=== PATIENT | female | born 1940 | race Caucasian/White ===

== ENCOUNTER 2016-11-18 13:40 | Outpatient (CLI) | payer MEDICARE, MEDICAID | END 2016-11-18 13:41 | disposition home or self-care (01) | DX: E78.4 Other hyperlipidemia (principal); Z79.899 Other long term (current) drug therapy; M12.89 Other specific arthropathies, not elsewhere classified, multiple sites; E03.9 Hypothyroidism, unspecified ==

== ENCOUNTER 2016-12-18 13:03 | Outpatient (CLI) | payer MEDICARE, MEDICAID | END 2016-12-18 13:04 | disposition EMS.NT | DX: Z03.89 Encounter for observation for other suspected diseases and conditions ruled out (principal); W06.XXXA Fall from bed, initial encounter; Y92.003 Bedroom of unspecified non-institutional (private) residence as the place of occurrence of the external cause ==

== ENCOUNTER 2017-02-08 13:31 | Outpatient (CLI) | payer MEDICARE, MEDICAID | END 2017-02-08 13:32 | disposition critical access hospital (66) | DX: S90.822A Blister (nonthermal), left foot, initial encounter (principal) | CPT/HCPCS: A0425; A0429 ==

== ENCOUNTER 2017-02-08 13:34 | Emergency (ER) | payer MEDICARE, MEDICAID ==
[2017-02-08 13:44] VITALS: BP 168/83
--- NOTE | 2017-02-08 14:38 | ED Physician Documentation ---
PD HPI SKIN - Stated complaint Stated Complaint: RASH - Chief complaint Chief Complaint: Wound - History obtained from History obtained from: Patient - History of Present Illness Timing - onset: How many weeks ago (2) Timing - duration: Weeks (2 weeks of some itching and discomfort on backs of thighs. Has appt with PMD tomorrow. Had been seen last week without apparent Dx. Patient says rash is worse since then.) Timing - details: Gradual onset Location: RLE (back of thighs and inside lower legs.), LLE Quality / character: Itchy, Burning, Discolored (red patchyes), Vesicular Associated symptoms: Myalgias. No: Fever, Joint pain Similar symptoms before: Has not had sx before Review of Systems Constitutional: reports: Myalgias. denies: Fever, Chills Nose: denies: Rhinorrhea / runny nose, Congestion Throat: denies: Sore throat Respiratory: denies: Cough GI: denies: Abdominal Pain, Nausea, Vomiting, Diarrhea Skin: reports: Rash Neurologic: denies: Focal weakness, Numbness, Near syncope, Headache PD PAST MEDICAL HISTORY - Past Medical History Past Medical History: Yes Cardiovascular: None, Murmur Respiratory: None Neuro: None HEENT: None Musculoskeletal: Osteoarthritis, Fibromyalgia - Past Surgical History Past Surgical History: Yes Ortho: 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 surgery /[employer]: 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 - Present Medications Home Medications: Ambulatory Orders Medication Instructions Recorded Confirmed Cranberry Fruit Concentrate 450 mg PO DAILY 04/23/13 02/08/17 [Cranberry] FLUoxetine [PROzac] 40 mg PO BID 04/23/13 02/08/17 HYDROcodone/ACET 7.5/325 [Lortab] 1 each PO Q4-6H PRN 04/23/13 02/08/17 Levothyroxine [Synthroid] 100 mcg PO QDAC 04/23/13 02/08/17 Loperamide [Imodium] 2 mg PO QID PRN 04/23/13 02/08/17 Memantine HCl [Namenda] 10 mg PO BID 04/23/13 02/08/17 Omeprazole [PriLOSEC] 20 mg PO DAILY 04/23/13 02/08/17 Simvastatin 20 mg PO HS 04/23/13 02/08/17 traZODone [Desyrel] 100 mg PO HS PRN 04/23/13 02/08/17 Albuterol Sulfate [Proair Hfa] 2 puffs IH TID PRN 02/10/14 02/08/17 Montelukast [Singulair] 10 mg PO DAILY 02/10/14 02/08/17 Aspirin [Aspirin EC] 81 mg PO DAILY 02/11/14 02/08/17 Acyclovir 800 mg PO QID #28 tablet 02/08/17 Dexamethasone [Decadron] 4 mg PO DAILY #5 tablet 02/08/17 Donepezil [Aricept] 5 mg PO DAILY 02/08/17 02/08/17 Gabapentin 300 mg PO BID 02/08/17 02/08/17 Hydrocodone/Acetaminophen [[place] 1 each PO Q6H PRN #20 tablet 02/08/17 5-325 Tablet] Hydroxyzine HCl 25 mg PO TID PRN 02/08/17 02/08/17 - Allergies Allergies/Adverse Reactions: Allergies Allergy/AdvReac Type Severity Reaction Status Date / Time rivastigmine [From Exelon] Allergy Rash Verified 02/08/17 14:08 rivastigmine tartrate * Allergy Rash Verified 02/08/17 14:08 [From Exelon] - Social History Does the pt smoke?: No Smoking Status: Former smoker Does the pt drink ETOH?: No Does the pt have substance abuse?: No - Immunizations Immunizations are current?: Yes - POLST Patient has POLST: No PD ED PE NORMAL - Vitals Vital signs reviewed: Yes - General General: Alert and oriented X 3, No acute distress, Well developed/nourished - HEENT HEENT: Pharynx benign - Neck Neck: Supple, no meningeal sign, No adenopathy - Cardiac Cardiac: RRR, No murmur - Respiratory Respiratory: Clear bilaterally - Abdomen Abdomen: Soft, Non tender - Back Back: No CVA TTP, No spinal TTP, Other (back has some clustered blistering red rash spots upper lumbar and radiating down to both posterior thighs then to medial lower legs. No purulence. ) - Derm Derm: Normal color, Warm and dry, Other (rash as above) - Extremities Extremities: No edema, No calf tenderness / cord - Neuro Neuro: No motor deficit, No sensory deficit - Psych Psych: Normal mood, Normal affect Results - Vitals Vitals: Vital Signs - 24 hr 02/08/17 13:38 Temperature 36.3 C L Heart Rate 71 Respiratory 18 Rate Blood Pressure 168/83 H O2 Saturation 97 Oxygen O2 Source [Without Activity] Room air O2 Source Room air PD MEDICAL DECISION MAKING - ED course Complexity details: considered differential (patchy blisters rash symmetrically on both posterior thighs down to medial lower legs and in upper lumbar back c/w dermatomal pattern. ), d/w patient Departure - Departure Disposition: 01 Home, Self Care Clinical Impression: Shingles outbreak Qualifiers: Herpes zoster complications: without complications Qualified Code(s): B02.9 - Zoster without complications Condition: Stable Record reviewed to determine appropriate education?: Yes Instructions: ED Shingles Follow-Up: Sabiha Allen MD [Primary Care Provider] - Prescriptions: Acyclovir 800 mg PO QID #28 tablet Dexamethasone [Decadron] 4 mg PO DAILY #5 tablet Hydrocodone/Acetaminophen [[place] 5-325 Tablet] 1 each PO Q6H PRN #20 tablet PRN Reason: Pain Comments: Continue usual medications. The rash looks like shingles, so will treat with an antiviral medication (Acyclovir), steroid (Decadron) for nerve inflammation to reduce pain, and then add Tylenol or [place] as needed for pains. Recheck with PMD in about 4-5 days. Discharge Date/Time: 02/08/17 15:39
[2017-02-08] MEDS ORDERED: DEXAMETHASONE 10 MG/ML VIAL PO STA (14:59)
[2017-02-08] MEDS ORDERED: ACYCLOVIR 200 MG CAPSULE PO STA (14:59)
[2017-02-08] MEDS ORDERED: HYDROcod/ACETAM 5/325 MG TABLET PO STA (14:59)
[2017-02-08] MEDS ORDERED: ACYCLOVIR 200 MG CAPSULE PO ONE (15:12)
[2017-02-08] MEDS ORDERED: HYDROcod/ACETAM 5/325 MG TABLET ONE (15:12)
[2017-02-08] MEDS ORDERED: DEXAMETHASONE 10 MG/ML VIAL ONE (15:12)
[2017-02-08] MEDS ORDERED: CHERRY SYRUP 10 ML UDC PO ONE (15:12)
== END 2017-02-08 15:39 | disposition home or self-care (01) ==
LOC: EDUNIT# → ED 13:34
DX: B02.9 Zoster without complications (principal); Z79.51 Long term (current) use of inhaled steroids; Z87.891 Personal history of nicotine dependence
CPT/HCPCS: 99283; A9270

== ENCOUNTER 2017-03-13 22:43 | Outpatient (CLI) | payer MEDICARE, MEDICAID | END 2017-03-13 23:59 | disposition EMS.NT | LOC: EMS 22:43 | PROVIDERS: ATTEND Surgery | DX: Z03.89 Encounter for observation for other suspected diseases and conditions ruled out (principal); W18.39XA Other fall on same level, initial encounter; Y93.G1 Activity, food preparation and clean up; Y92.030 Kitchen in apartment as the place of occurrence of the external cause ==

== ENCOUNTER 2017-03-30 14:25 | Outpatient (CLI) | payer MEDICARE, MEDICAID ==
--- NOTE | 2017-04-01 08:13 | Mammography Report ---
DIGITAL BILATERAL SCREENING MAMMOGRAM: 03/30/2017 CLINICAL HISTORY: This is a 77-year-old female in for routine screening mammogram. Patient has a family history of breast cancer. Patient's sister had breast cancer in her 40s. Patient has had no breast surgical history. Patient has relatively large breasts, so multiple craniocaudad views and oblique lateral views had to be obtained in order to adequately visualize each breast. TECHNIQUE: Routine CC and MLO projections were obtained of the breasts. FINDINGS: Breast parenchyma consists of scattered fibroglandular densities. The right breast shows once again two clusters of calcification in the upper outer quadrant of the anterior aspect of the right breast. These clusters of calcification have been present on multiple old exams without significant change. No significant masses are noted in the right breast. The left breast demonstrates two small clusters of calcification. One of these clusters of calcification is located in the anterior aspect of the breast within the midline 6 cm posterior to the nipple. The other calcification resides in the inner inferior quadrant of the left breast at the 4-5 o'clock position 19 cm posteromedial to the nipple. Each of these calcifications have shown a gradual increased number of calcifications within them over the course of patient's mammograms. Recommend patient return for magnification craniocaudad and lateral medial views of each of these clusters of calcification. There are a few small masses noted in the left breast. These measure 5 mm or less and most likely are of benign etiology. There are some calcifications developing in the upper outer quadrant of the right breast that were not noted on preceding exam. These reside in the 10 o' clock position 14 cm from the nipple. Recommend patient return for magnification craniocaudad and mediolateral views for further evaluation. These calcifications are approximately 11 cm from the nipple. IMPRESSION: A CLUSTER OF CALCIFICATION IS NOTED IN THE 10 O'CLOCK POSITION OF THE RIGHT BREAST AND TWO CLUSTERS OF CALCIFICATION ARE NOTED IN THE LEFT BREAST. THE CLUSTERS OF CALCIFICATIONS IN THE LEFT BREAST RESIDE IN THE MIDLINE OF THE ANTERIOR HALF OF THE LEFT BREAST AND IN THE 4 O'CLOCK POSITION OF THE POSTERIOR HALF OF THE LEFT BREAST. THESE CLUSTERS OF CALCIFICATIONS SHOW PROGRESSION OVER THE COURSE OF PATIENT'S MAMMOGRAMS. RECOMMEND PATIENT RETURN FOR MAGNIFICATION VIEWS OF EACH BREAST FOR FURTHER EVALUATION. BIRADS CATEGORY 0 - INCOMPLETE. NEEDS ADDITIONAL IMAGING EVALUATION. BILATERAL MAGNIFICATION VIEWS. STANDARD QUALIFYING STATEMENTS 1. This examination was reviewed with the aid of Computer-Aided Detection (CAD). 2. A negative or benign imaging report should not delay biopsy if clinically suspicious findings are present. Consider surgical consultation if warranted. More than 5% of cancers are not identified by imaging. 3. Dense breasts may obscure an underlying neoplasm. JOB #: [id number] EXT JOB #: [id number] [facility]
== END 2017-03-30 14:26 | disposition home or self-care (01) ==
LOC: DI 14:25
PROVIDERS: ATTEND Internal Medicine
DX: Z12.31 Encounter for screening mammogram for malignant neoplasm of breast (principal); R92.1 Mammographic calcification found on diagnostic imaging of breast; Z80.3 Family history of malignant neoplasm of breast
CPT/HCPCS: 77067

== ENCOUNTER 2017-03-30 14:41 | Outpatient (CLI) | payer MEDICARE, MEDICAID ==
--- NOTE | 2017-03-31 18:45 | XRAY Report ---
TWO VIEWS OF THE LUMBAR SPINE: 03/30/2017 CLINICAL HISTORY: Patient has back pain for years. COMPARISON: 05/06/2016 FINDINGS: Prominent vascular calcification is noted in the abdominal aorta and its iliac branches. Five nonrib-bearing lumbar-type vertebrae are noted. Mild anterior spurring is noted in the lumbar s pine and lower T-spine. Minimal disk space narrowing is noted at L2-3 and L4-5. Mild narrowing of the SI joints is seen related to mild osteoarthritis. Mild spurring is noted along the lateral aspect of each acetabulum. No significant change is detected in the lumbar spine as com pared to 05/06/2016. IMPRESSION: MILD OSTEOARTHRITIS OF THE LUMBAR SPINE WITHOUT CHANGE NOTED COMPARED TO 05/06/2016. JOB #: [id number] EXT JOB #:[id number]
== END 2017-03-30 14:42 | disposition home or self-care (01) ==
LOC: DI 14:41
PROVIDERS: ATTEND Internal Medicine
DX: M47.896 Other spondylosis, lumbar region (principal); E78.4 Other hyperlipidemia; M12.89 Other specific arthropathies, not elsewhere classified, multiple sites; Z79.899 Other long term (current) drug therapy
CPT/HCPCS: 36415; 72100; 80053; 80061; 84550; 85651

== ENCOUNTER 2017-03-30 15:06 | Outpatient (CLI) | payer MEDICARE, MEDICAID ==
[2017-03-30 15:27] LABS: HCT - HEMATOCRIT 37.9 % (37.0-47.0); HGB - HEMOGLOBIN 12.8 g/dL (12.0-16.0); MEAN CORPUSCULAR HEMOGLOBIN 30.5 pg (27.0-31.0); MEAN CORPUSCULAR HGB CONC 33.8 g/dL (32.0-36.0); MEAN CORPUSCULAR VOLUME 90.2 fL (81.0-99.0); MEAN PLATELET VOLUME 6.7 fL (7.9-10.8); RED BLOOD COUNT 4.2 10^6/uL (4.20-5.40); RED CELL DISTRIBUTION WIDTH 13.3 % (12.0-15.0); WHITE BLOOD COUNT 7.7 x10^3/uL (4.8-10.8)
[2017-03-30 15:45] LABS: ALBUMIN/GLOBULIN RATIO 1.1 (1.0-2.2); BILIRUBIN,TOTAL 0.5 mg/dL (0.2-1.0); BUN - BLOOD UREA NITROGEN 16 mg/dL (6-20); CALCIUM 9.5 mg/dL (8.5-10.3); CARBON DIOXIDE - CO2 30 mmol/L (21-32); CHLORIDE 95 mmol/L (101-111); CHOL/HDL RATIO 2.6 (<4.4); CHOLESTEROL 174 mg/dL; GFR - MDRD 54 (>89); GLUCOSE 117 mg/dL (70-100); HDL CHOLESTEROL 68 mg/dL; LDL/HDL RATIO 1.2 (<4.4); POTASSIUM 4.3 mmol/L (3.5-5.0); SODIUM 135 mmol/L (135-145); TRIGLYCERIDES 109 mg/dL; URIC ACID 5.2 mg/dL (2.6-7.2); VLDL CHOLESTEROL 22 mg/dL
== END 2017-03-30 15:07 | disposition home or self-care (01) ==
LOC: LAB 15:06
PROVIDERS: ATTEND Internal Medicine
DX: E78.4 Other hyperlipidemia (principal); M54.5 Low back pain; M12.89 Other specific arthropathies, not elsewhere classified, multiple sites; Z79.899 Other long term (current) drug therapy
CPT/HCPCS: 36415; 80053; 80061; 84550; 85651

== ENCOUNTER 2017-04-27 13:21 | Outpatient (CLI) | payer MEDICARE, MEDICAID ==
--- NOTE | 2017-04-27 16:19 | Mammography Report ---
DIGITAL BILATERAL DIAGNOSTIC MAMMOGRAM: 04/27/2017 CLINICAL HISTORY: Asymptomatic patient recalled from a screening mammogram 03/30. Sister with history of breast cancer. TECHNIQUE: Bilateral magnification CC/true lateral and open true lateral views obtained. NOTE: Positioning is limited by patient tolerance. FINDINGS: RIGHT BREAST: There are loosely-grouped and scattered calcifications in the upper outer quadrant. These are predominantly punctate and uniform. There is no definite pleomorphism. There is no associated mass or distortion. LEFT BREAST: There is a group of tightly clustered coarse calcifications in the central position. Additional punctate and scattered calcifications are noted diffusely. There is no definite pleomorphism. There is no associated mass or distortion. Recommend followup magnification views to confirm stability in six months. IMPRESSION: PROBABLY BENIGN EXAMINATION (BIRADS CATEGORY 3-PROBABLY BENIGN FINDINGS). RECOMMENDATION: FOLLOWUP BILATERAL MAGNIFICATION VIEWS IN SIX MONTHS. NOTE: Positioning limitations described above. STANDARD QUALIFYING STATEMENTS 1. This examination was reviewed with the aid of Computer-Aided Detection (CAD). 2. A negative or benign imaging report should not delay biopsy if clinically suspicious findings are present. Consider surgical consultation if warranted. More than 5% of cancers are not identified by imaging. 3. Dense breasts may obscure an underlying neoplasm. JOB #: [id number] EXT JOB #: [id number] GIA
== END 2017-04-27 13:22 | disposition home or self-care (01) ==
LOC: DI 13:21
PROVIDERS: ATTEND Internal Medicine
DX: R92.1 Mammographic calcification found on diagnostic imaging of breast (principal); Z80.3 Family history of malignant neoplasm of breast
CPT/HCPCS: 77066

== ENCOUNTER 2017-04-27 13:21 | Outpatient (CLI) | payer MEDICARE, MEDICAID ==
--- NOTE | 2017-04-27 16:31 | XRAY Report ---
FOUR VIEW LEFT WRIST: 04/27/2017 CLINICAL HISTORY: Wrist pain. No known trauma. FINDINGS: There is patchy bony demineralization. Radiocarpal and intercarpal degenerative changes ex ist. Ligamentous calcifications are noted at the triangular fibrocartilage and about the proximal 1st metacarpal. There is no acute fracture or focus of destruction. There is no subluxation. IMPRESSION: DEMINERALIZATION AND DEGENERATIVE CHANGES. DYSTROPHIC SOFT TISSUE CALCIFICATIONS. NO ACU TE PROCESS. JOB #: [id number] EXT JOB #:[id number]
== END 2017-04-27 23:59 | disposition home or self-care (01) ==
LOC: DI 13:21
PROVIDERS: ATTEND Internal Medicine
DX: M25.50 Pain in unspecified joint (principal)

== ENCOUNTER 2017-04-30 13:00 | Outpatient (CLI) | payer MEDICARE, MEDICAID | END 2017-04-30 13:01 | disposition EMS.NT | LOC: EMS 13:00 | PROVIDERS: ATTEND Surgery | DX: Z03.89 Encounter for observation for other suspected diseases and conditions ruled out (principal); W06.XXXA Fall from bed, initial encounter; Y92.003 Bedroom of unspecified non-institutional (private) residence as the place of occurrence of the external cause ==

== ENCOUNTER 2017-06-03 14:42 | Outpatient (CLI) | payer MEDICARE, MEDICAID | END 2017-06-03 14:43 | disposition critical access hospital (66) | LOC: EMS 14:42 | PROVIDERS: ATTEND Surgery | DX: M25.551 Pain in right hip (principal); M79.604 Pain in right leg; M25.511 Pain in right shoulder; W18.11XA Fall from or off toilet without subsequent striking against object, initial encounter; Y92.031 Bathroom in apartment as the place of occurrence of the external cause | CPT/HCPCS: A0425; A0429 ==

== ENCOUNTER 2017-06-03 15:03 | Emergency (ER) | payer MEDICARE, MEDICAID ==
[~2017-06-03 15:03] MED LIST: TETANUS/DIPHTHERIA/PERTUSSIS 0.5 ML SYRINGE IM ONE
[2017-06-03] MEDS ORDERED: TETANUS/DIPHTHERIA/PERTUSSIS 0.5 ML SYRINGE IM ONE (15:07)
--- NOTE | 2017-06-03 15:56 | XRAY Preliminary Report ---
Exam: XR Hand 3 View RT IMPRESSION: 1. No acute bony abnormalities. 2. 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 [facility] SITE ID: [id number]
--- NOTE | 2017-06-03 15:57 | XRAY Preliminary Report ---
Exam: XR Humerus RT IMPRESSION: No acute bony abnormality. [facility] SITE ID: [id number]
--- NOTE | 2017-06-03 15:57 | XRAY Report ---
EXAM: RIGHT HAND RADIOGRAPHY EXAM DATE: 06/03/2017 03:38 PM. CLINICAL HISTORY: Fall. Hand injury. COMPARISON: None. TECHNIQUE: 3 views. FINDINGS: Bones: No acute traumatic or destructive bone abnormalities. No erosions or periostitis. Joints: Mild degenerative spurring of the IP joints. Alignment and joint spaces maintained. Soft Tissues: Widespread periarticular calcifications, especially the MCP joints. IMPRESSION: 1. No acute bony abnormalities. 2. 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 [facility] Referring Provider Line: [phone] SITE ID: [id number]
--- NOTE | 2017-06-03 15:59 | XRAY Report ---
EXAM: RIGHT HUMERUS RADIOGRAPHY EXAM DATE: 06/03/2017 03:38 PM. CLINICAL HISTORY: Fall. Pain. COMPARISON: None. TECHNIQUE: 2 views. FINDINGS: Bones: Normal. No fractures or bone lesions. Joints: Normal. No effusions or subluxations in the visualized shoulder or elbow joints. Soft Tissues: Multiple soft tissue calcifications adjacent to the acromioclavicular joint and glenohu meral joint. IMPRESSION: No acute bony abnormality. [facility] Referring Provider Line: [phone] SITE ID: [id number]
--- NOTE | 2017-06-03 16:00 | CT Preliminary Report ---
Exam: CT Head W/O IMPRESSION: Chronic findings. No acute disease. [facility] SITE ID: [id number]
--- NOTE | 2017-06-03 16:03 | CT Report ---
EXAM: CT HEAD EXAM DATE: 06/03/2017 03:37 PM. CLINICAL HISTORY: Fall HI lethargic. COMPARISON: 04/23/2015. TECHNIQUE: Multiaxial CT images were obtained from the foramen magnum to the vertex. IV contrast: Non e. Reformats: Coronal. In accordance with CT protocol optimization, one or more of the following dose reduction techniques w ere utilized for this exam: automated exposure control, adjustment of mA and/or KV based on patient s ize, or use of iterative reconstructive technique. FINDINGS: Parenchyma: No intraparenchymal hemorrhage. No evidence of mass, midline shift, or CT findings of acu te infarction. Small lacunar infarctions. Carrion-white differentiation is distinct. Extraaxial Spaces: Normal for age. No subdural or epidural collections. Ventricles: The ventricles and cortical sulci are enlarged, consistent with age-related tissue loss. Sinuses: Imaged paranasal sinuses, orbits, and mastoids show no significant abnormality. Bones: Unremarkable. Other: Diffuse chronic microangiopathic white matter changes. Calcifications of intracranial carotid and vertebral arteries. IMPRESSION: Chronic findings. No acute disease. [facility] Referring Provider Line: [phone] SITE ID: [id number]
--- NOTE | 2017-06-03 16:08 | CT Preliminary Report ---
Exam: CT Cervical Spine W/O IMPRESSION: Degenerative changes most marked at C5-C6 and C6-C7. No acute disease. [facility] SITE ID: [id number]
--- NOTE | 2017-06-03 16:10 | CT Report ---
EXAM: CT CERVICAL SPINE WITHOUT CONTRAST DATE: 06/03/2017 03:45 PM HISTORY: Fall neck pain. COMPARISONS: 01/17/2015. TECHNIQUE: Thin-section axial images were acquired of the cervical spine without contrast. Post-proce ssing: Coronal and sagittal reformats. Other: None. In accordance with CT protocol optimization, one or more of the following dose reduction techniques w ere utilized for this exam: automated exposure control, adjustment of mA and/or KV based on patient s ize, or use of iterative reconstructive technique. FINDINGS: Alignment: Normal. No scoliosis or spondylolisthesis. Bones: No fracture or bone lesion. Bone island in C5 vertebral body. Interspace Levels/Facets: Disk space narrowing at C5-C6 and C6-C7 with anterior osteophyte formation. Mild generalized uterine changes in the mid and lower cervical levels. Musculature: Grossly unremarkable. Other: The paravertebral and prevertebral soft tissues are normal. The lung apices are clear. IMPRESSION: Degenerative changes most marked at C5-C6 and C6-C7. No acute disease. [facility] Referring Provider Line: [phone] SITE ID: [id number]
--- NOTE | 2017-06-03 17:04 | ED Physician Documentation ---
History of Present Illness - Stated complaint Stated Complaint: FELL - Chief complaint Chief Complaint: Ext Problem - Additonal information Additional information: hx from pt takes pain meds just got a new rx from store took two was sitting on her toilet and fell aspeep and toppled into the shower with her toilet bars hit head, neck pain, right upper arm pain, right hand pain and abrasions, very sleepy, no hip or lower ext paimn no reported fever cough NVD Review of Systems Respiratory: denies: Cough GI: denies: Vomiting Skin: reports: Abrasion (s) Musculoskeletal: reports: Neck pain, Extremity pain Neurologic: reports: Head injury Endocrine: denies: Easy bruising / bleeding (pt reported being on a blood thinner but does not know what it is, not on med list) Immunocompromised: denies: Immunocompromised PD PAST MEDICAL HISTORY - Past Medical History Past Medical History: Yes Cardiovascular: None, Murmur Respiratory: None Neuro: None HEENT: None Musculoskeletal: Osteoarthritis, Fibromyalgia - Past Surgical History Past Surgical History: Yes Ortho: 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 surgery /[employer] POOL: 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 - Present Medications Home Medications: Ambulatory Orders Medication Instructions Recorded Confirmed Ascorbic Acid [Vitamin C] 1 tab PO BID 06/03/17 06/03/17 Cetirizine HCl/Pseudoephedrine 1 tab PO BID 06/03/17 06/03/17 [Zyrtec-D Tablet] Flaxseed Oil 1 tab PO TID 06/03/17 06/03/17 Fluoxetine HCl 1 tab PO TID 06/03/17 06/03/17 Gabapentin [Gabapentin] 1 tab PO BID 06/03/17 06/03/17 Hydrocodone/Acetaminophen 1 tab PO PRN PRN 06/03/17 06/03/17 [Hydrocodon-Acetaminoph 7.5-325] Levothyroxine [Synthroid] 1 tab PO QDAC 06/03/17 06/03/17 Loperamide HCl [Loperamide] 1 tab PO DAILY 06/03/17 06/03/17 Memantine HCl [Namenda Xr] 1 tab PO BID 06/03/17 06/03/17 Montelukast [Singulair] 1 tab PO DAILY 06/03/17 06/03/17 Montelukast [Singulair] 1 tab PO DAILY 06/03/17 06/03/17 Blomkest-3/Dha/Epa/Fish Oil [Fish Oil 1 tab PO TID 06/03/17 06/03/17 1,000 mg Softgel] Omeprazole [Omeprazole] 1 tab PO DAILY 06/03/17 06/03/17 Pregabalin [Lyrica] 1 tab PO TID 06/03/17 06/03/17 Simvastatin [Zocor] 1 tab PO DAILY 06/03/17 06/03/17 Trazodone HCl 1 tab PO DAILY 06/03/17 06/03/17 raNITIdine [Zantac] 1 tab PO DAILY 06/03/17 06/03/17 - Allergies Allergies/Adverse Reactions: Allergies Allergy/AdvReac Type Severity Reaction Status Date / Time lisinopril Allergy Anaphylaxis Verified 06/03/17 15:34 rivastigmine [From Exelon] Allergy Rash Verified 06/03/17 15:34 rivastigmine tartrate * Allergy Rash Verified 06/03/17 15:34 [From Exelon] - Social History Does the pt smoke?: No Smoking Status: Former smoker Does the pt drink ETOH?: No Does the pt have substance abuse?: No - Immunizations Immunizations are current?: Yes - POLST Patient has POLST: No PD ED PE NORMAL - Vitals Vital signs reviewed: Yes - General General: No: Alert and oriented X 3 (very sleepy) - HEENT HEENT: PERRL (small pupils) - Neck Neck: No: No bony TTP (+ diffuse TTP) - Cardiac Cardiac: RRR - Respiratory Respiratory: No respiratory distress, Clear bilaterally - Abdomen Abdomen: Soft, Non tender - Derm Derm: Other (fragile skin, sup skin tears, to dorsum L hand) - Extremities Extremities: Other (TTP upper humerus and dorsum of hand, no deformity, MSV intact, no hip or lower extremity pain) - Neuro Neuro: No motor deficit, No sensory deficit Results - Vitals Vitals: Vital Signs - 24 hr 06/03/17 14:52 Temperature 36.5 C Heart Rate 102 H Respiratory 18 Rate Blood Pressure 132/73 H O2 Saturation 94 Oxygen O2 Source [] Room air O2 Source Room air - Rads (name of study) CTH Radiology: See rad report (no acute) CT CS Radiology: See rad report (no acut) hand Radiology: See rad report (no acute) humerus Radiology: See rad report (no acute) Departure - Departure Disposition: 01 Home, Self Care Clinical Impression: Fall Qualifiers: Encounter type: initial encounter Qualified Code(s): W19.XXXA - Unspecified fall, initial encounter Head injury Qualifiers: Encounter type: initial encounter Qualified Code(s): S09.90XA - Unspecified injury of head, initial encounter Neck sprain Qualifiers: Encounter type: initial encounter Qualified Code(s): S13.9XXA - Sprain of joints and ligaments of unspecified parts of neck, initial encounter Arm contusion Qualifiers: Encounter type: initial encounter Laterality: right Qualified Code(s): S40.021A - Contusion of right upper arm, initial encounter Contusion of head Qualifiers: Encounter type: initial encounter Contusion of head detail: unspecified part of head Qualified Code(s): S00.93XA - Contusion of unspecified part of head, initial encounter Condition: Good Instructions: ED Head Injury Closed, ED Head Injury Closed Sleep Mon, ED Sprain Strain Neck, ED Contusion Upper Ext Follow-Up: Sabiha Allen MD [Provider Admit Priv/Credential] - Comments: I do not think you should be taking two pain pills at a time - you are way too sleepy after taking those medications - especially if you live alone Please stay with a responsible adult tonight who can assist you until you recover from the medication you took earlier today
[2017-06-03 18:20] VITALS: BP 143/73
== END 2017-06-03 18:19 | disposition home or self-care (01) ==
LOC: EDBD → ED 15:03
DX: S09.90XA Unspecified injury of head, initial encounter (principal); S13.9XXA Sprain of joints and ligaments of unspecified parts of neck, initial encounter; S00.93XA Contusion of unspecified part of head, initial encounter; S40.021A Contusion of right upper arm, initial encounter; W18.12XA Fall from or off toilet with subsequent striking against object, initial encounter; Y93.84 Activity, sleeping; Z23 Encounter for immunization; Z87.891 Personal history of nicotine dependence; Z79.01 Long term (current) use of anticoagulants
CPT/HCPCS: 70450; 72125; 90471; 99283; 99284

== ENCOUNTER 2017-06-22 14:07 | Outpatient (CLI) | payer MEDICARE, MEDICAID ==
[2017-06-22 14:56] LABS: ALBUMIN/GLOBULIN RATIO 1.2 (1.0-2.2); BILIRUBIN,TOTAL 0.5 mg/dL (0.2-1.0); BUN - BLOOD UREA NITROGEN 13 mg/dL (6-20); CALCIUM 9.3 mg/dL (8.5-10.3); CARBON DIOXIDE - CO2 30 mmol/L (21-32); CHLORIDE 99 mmol/L (101-111); CHOL/HDL RATIO 2.5 (<4.4); CHOLESTEROL 166 mg/dL; CREATININE 0.8 mg/dL (0.4-1.0); GFR - MDRD 70 (>89); GLUCOSE 105 mg/dL (70-100); HDL CHOLESTEROL 66 mg/dL; LDL/HDL RATIO 1.2 (<4.4); POTASSIUM 4.9 mmol/L (3.5-5.0); SODIUM 139 mmol/L (135-145); TOTAL PROTEIN 6.9 g/dL (6.7-8.2); TRIGLYCERIDES 98 mg/dL; VLDL CHOLESTEROL 20 mg/dL
[2017-06-22 15:50] LABS: THYROID STIMULATING HORMONE 1.73 uIU/mL (0.34-5.60)
== END 2017-06-22 14:08 | disposition home or self-care (01) ==
LOC: LAB 14:07
PROVIDERS: ATTEND Internal Medicine
DX: E03.9 Hypothyroidism, unspecified (principal); E78.4 Other hyperlipidemia; F33.0 Major depressive disorder, recurrent, mild; Z79.899 Other long term (current) drug therapy
CPT/HCPCS: 36415; 80053; 80061; 84439; 84443

== ENCOUNTER 2017-11-07 14:19 | Outpatient (CLI) | payer MEDICARE, MEDICAID ==
--- NOTE | 2017-11-07 15:43 | Mammography Report ---
DIGITAL DIAGNOSTIC BILATERAL MAMMOGRAM: 11/07/2017 CLINICAL INDICATION: Followup calcifications bilaterally. TECHNIQUE: Bilateral CC, MLO, true lateral, spot magnification views. COMPARISON: 04/27/2017, 03/30/2017, 01/22/2015, 02/07/2013, 09/23/2011, 01/22/2010. FINDINGS: The breasts again demonstrate scattered fibroglandular densities bilaterally. Coarse and punctate, typically benign calcifications are again seen. The calcifications in the left breast continue to coarsen. The calcifications in the right breast remain punctate on spot magnification views. No developing pleomorphism is identified. No associated mass or architectural distortion is seen. IMPRESSION: PROBABLE BENIGN BILATERAL CALCIFICATIONS. RECOMMENDATIONS: DIAGNOSTIC BILATERAL MAMMOGRAM IN 6 MONTHS, TO ASSURE STABILITY. BIRADS CATEGORY 3-PROBABLE BENIGN FINDINGS. STANDARD QUALIFYING STATEMENTS: 1. This examination was reviewed with the aid of Computer-Aided Detection (CAD). 2. A negative or benign imaging report should not delay biopsy if clinically suspicious findings are present. Consider surgical consultation if warranted. More than 5% of cancers are not identified by imaging. 3. Dense breasts may obscure an underlying neoplasm. TD: 11/07/2017 15:42
== END 2017-11-07 14:20 | disposition home or self-care (01) ==
LOC: DI 14:19
PROVIDERS: ATTEND Internal Medicine
DX: R92.1 Mammographic calcification found on diagnostic imaging of breast (principal)
CPT/HCPCS: 77066

== ENCOUNTER 2018-03-01 12:20 | Outpatient (CLI) | payer MEDICARE, MEDICAID | END 2018-03-01 12:21 | disposition home or self-care (01) | LOC: LAB 12:20 | PROVIDERS: ATTEND Internal Medicine | DX: E03.9 Hypothyroidism, unspecified (principal); E78.4 Other hyperlipidemia; N39.41 Urge incontinence | CPT/HCPCS: 84443 ==

== ENCOUNTER 2018-03-13 15:06 | Outpatient (CLI) | payer MEDICARE, MEDICAID ==
--- NOTE | 2018-03-13 15:50 | XRAY Report ---
Procedure Date: 03/13/2018 Accession Number: [id number] / [id number] Procedure: XR - Lumbar Spine 2 View CPT Code: FULL RESULT: EXAM: Lumbar Spine 2 View DATE: 03/13/2018 3:41 PM CLINICAL HISTORY: BACK PX COMPARISON: 03/30/2017 TECHNIQUE: 3 views. FINDINGS: Alignment: Normal. No spondylolisthesis or scoliosis. Bones: Five [id number]-[id number] lumbar vertebral bodies are present. No fractures or bone lesions. Disks: Progression of degenerative disc disease. Facets: Progression of facet arthropathy. Sacroiliac Joints: Mild degenerative changes. Soft Tissues: Normal. The visualized bowel gas pattern is normal. IMPRESSION: Progression of degenerative disc and facet disease. No evidence of interval compression fracture. [facility]
== END 2018-03-13 15:07 | disposition home or self-care (01) ==
LOC: DI 15:06
PROVIDERS: ATTEND Internal Medicine
DX: M51.36 Other intervertebral disc degeneration, lumbar region (principal); M47.896 Other spondylosis, lumbar region; M47.898 Other spondylosis, sacral and sacrococcygeal region
CPT/HCPCS: 72100

== ENCOUNTER 2018-05-26 09:38 | Outpatient (CLI) | payer MEDICARE, MEDICAID | END 2018-05-26 09:39 | disposition EMS.NT | LOC: EMS 09:38 | PROVIDERS: ATTEND Surgery | DX: Z03.89 Encounter for observation for other suspected diseases and conditions ruled out (principal) ==

== ENCOUNTER 2018-10-12 13:55 | Emergency (ER) | payer MEDICARE, MEDICAID ==
--- NOTE | 2018-10-12 15:38 | ED Physician Documentation ---
History of Present Illness - Stated complaint Stated Complaint: BILAT LEG SWELLING/REDNESS - Chief complaint Chief Complaint: Ext Problem - History obtained from History obtained from: Patient - History of Present Illness Timing: Other (1 month ago) Pain level max: 9 Pain level now: 9 - Additonal information Additional information: 78-year-old female with bilateral lower extremity swelling worsening over the past month. She has had this for several years. Has been tried on various diuretics, but she does not like them does not like that they make her urinate. She does not take them reliably. No fevers. No fall. No injury. She does not elevate her legs at home. Frequently falls asleep on the commode. Better with rest and elevation. Worse with standing. 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 - Present Medications Home Medications: Ambulatory Orders Medication Instructions Recorded Confirmed Ascorbic Acid [Vitamin C] 1 tab PO BID 06/03/17 03/01/18 Cetirizine HCl/Pseudoephedrine 1 tab PO BID 06/03/17 03/01/18 [Zyrtec-D Tablet] Flaxseed Oil 1 tab PO TID 06/03/17 03/01/18 Fluoxetine HCl 1 tab PO TID 06/03/17 03/01/18 Gabapentin 1 tab PO BID 06/03/17 03/01/18 Hydrocodone/Acetaminophen 1 tab PO PRN PRN 06/03/17 03/01/18 [Hydrocodone-Acetamin 7.5-325] Levothyroxine [Synthroid] 1 tab PO QDAC 06/03/17 03/01/18 Loperamide HCl [Loperamide] 1 tab PO DAILY 06/03/17 03/01/18 Memantine HCl [Namenda Xr] 1 tab PO BID 06/03/17 03/01/18 Montelukast [Singulair] 1 tab PO DAILY 06/03/17 03/01/18 [place]-3/Dha/Epa/Fish Oil [Fish Oil 1 tab PO TID 06/03/17 03/01/18 1,000 mg Softgel] Omeprazole 1 tab PO DAILY 06/03/17 03/01/18 Pregabalin [Lyrica] 1 tab PO TID 06/03/17 03/01/18 Simvastatin [Zocor] 1 tab PO DAILY 06/03/17 03/01/18 Trazodone HCl 1 tab PO DAILY 06/03/17 03/01/18 raNITIdine [Zantac] 1 tab PO DAILY 06/03/17 03/01/18 Aspirin [Adult Low Dose Aspirin EC] 1 tab PO DAILY 03/01/18 03/01/18 Calcium Carbonate [Calcium] 2 tab PO DAILY 03/01/18 03/01/18 Cholecalciferol (Vitamin D3) 1 cap PO DAILY 03/01/18 03/01/18 [Vitamin D3] Cranberry 1 cap PO DAILY 03/01/18 03/01/18 Donepezil [Aricept] 1 tab PO DAILY 03/01/18 03/01/18 Garlic 1 tab PO DAILY 03/01/18 03/01/18 [place] Root 1 cap PO DAILY 03/01/18 03/01/18 Multivitamin [Multivitamins] 1 cap PO DAILY 03/01/18 03/01/18 Vitamin E (Dl,Tocopheryl Acet) 1 cap PO DAILY 03/01/18 03/01/18 [Vitamin E] - Allergies Allergies/Adverse Reactions: Allergies Allergy/AdvReac Type Severity Reaction Status Date / Time lisinopril Allergy Anaphylaxis Verified 10/12/18 15:10 rivastigmine [From Exelon] Allergy Rash Verified 10/12/18 15:10 rivastigmine tartrate * Allergy Rash Verified 10/12/18 15:10 [From Exelon] - Social History Does the pt smoke?: No Smoking Status: Never smoker Does the pt drink ETOH?: No Does the pt have substance abuse?: No - Immunizations Immunizations are current?: Yes - POLST Patient has POLST: No PD ED PE NORMAL - Vitals Vital signs reviewed: Yes - General General: Alert and oriented X 3, No acute distress - HEENT HEENT: Moist mucous membranes - Neck Neck: Supple, no meningeal sign - Cardiac Cardiac: RRR, Strong equal pulses - Respiratory Respiratory: No respiratory distress, Clear bilaterally - Abdomen Abdomen: Soft, Non tender, Non distended - Derm Derm: Warm and dry - Extremities Extremities: Other (2+ bilateral lower extremity edema. No evidence of infection or cellulitis. No evidence of DVT) - Neuro Neuro: Alert and oriented X 3 Results - Vitals Vitals: Vital Signs - 24 hr 10/12/18 10/12/18 14:00 16:02 Temperature 36 C L 36.4 C L Heart Rate 76 80 Respiratory 20 18 Rate Blood Pressure 149/80 H 178/70 H O2 Saturation 94 96 Oxygen O2 Source [Without Activity] Room air O2 Source Room air PD MEDICAL DECISION MAKING - ED course Complexity details: considered differential, d/w patient ED course: 78-year-old female with chronic lower extremity edema. Placed in compression socks and we will see how she progresses on these over the next few days. Also counseled to elevate her legs at home. No evidence of infection or DVT. Patient counseled regarding signs and symptoms for which I believe and urgent re-evaluation would be necessary. Patient with good understanding of and agreement to plan and is comfortable going home at this time This document was made in part using voice recognition software. While efforts are made to proofread this document, sound alike and grammatical errors may occur. Departure - Departure Disposition: 01 Home, Self Care Clinical Impression: Peripheral edema Condition: Good Instructions: ED Edema Legs Bilateral Follow-Up: Sabiha Allen MD [Primary Care Provider] - Within 1 week Comments: Return if you worsen. Keep the compression socks on during the day and take them off at night. elevated your feet whenever possible. Discharge Date/Time: 10/12/18 16:02
[2018-10-12 16:06] VITALS: BP 178/70
== END 2018-10-12 16:02 | disposition home or self-care (01) ==
LOC: ED 13:55
DX: R60.0 Localized edema (principal); Z79.82 Long term (current) use of aspirin
CPT/HCPCS: 99282; 99283

== ENCOUNTER 2018-10-21 13:06 | Outpatient (CLI) | payer MEDICARE, MEDICAID | END 2018-10-21 13:07 | disposition EMS.NT | LOC: EMS 13:06 | PROVIDERS: ATTEND Surgery | DX: M79.606 Pain in leg, unspecified (principal) ==

== ENCOUNTER 2018-10-23 11:36 | Emergency (ER) | payer MEDICARE, MEDICAID ==
[2018-10-23 11:48] VITALS: BP 125/53
[2018-10-23] MEDS ORDERED: hydrOXYzine PAMOATE 25 MG CAPSULE PO STA (13:14)
[2018-10-23] MEDS ORDERED: AMOX/CLAV 875 MG/125 MG TABLET PO STA (13:14)
[2018-10-23] MEDS ORDERED: predniSONE 20 MG TABLET PO STA (13:15)
--- NOTE | 2018-10-23 13:18 | ED Physician Documentation ---
History of Present Illness - Stated complaint Stated Complaint: REACTION TO MEDICINE - Chief complaint Chief Complaint: General - History obtained from History obtained from: Patient, Caregiver - History of Present Illness Timing: Other (This is a 78-year-old woman who was admitted for cellulitis of the lower extremities last week after failing outpatient treatment with cephalexin. She was discharged 5 days ago on clindamycin and 2 days ago developed diffuse itchy rash and stopped the clindamycin. The cellulitis is not much better but it is not worse either but the itching bothers her the most. 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 : 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, Nocturia, Frequency HEENT: Chronic vision loss, Chronic sinusitis, Chronic hearing loss Psych: Depression Musculoskeletal: Osteoarthritis, Fibromyalgia, Chronic back pain Derm: None - Past Surgical History Past Surgical History: Yes Ortho: 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 surgery /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: 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 - Present Medications Home Medications: Ambulatory Orders Medication Instructions Recorded Confirmed Ascorbic Acid [Vitamin C] 1 tab PO BID 06/03/17 03/01/18 Flaxseed Oil 1 tab PO TID 06/03/17 03/01/18 Fluoxetine HCl 40 mg PO BID 06/03/17 10/16/18 Gabapentin 300 mg PO BID 06/03/17 10/16/18 Hydrocodone/Acetaminophen 1 tab PO Q6H PRN 06/03/17 10/16/18 [Hydrocodone-Acetamin 7.5-325] Loperamide HCl [Loperamide] 1 tab PO DAILY 06/03/17 03/01/18 Montelukast [Singulair] 10 mg PO DAILY 06/03/17 10/16/18 [place]-3/Dha/Epa/Fish Oil [Fish Oil 1 tab PO TID 06/03/17 03/01/18 1,000 mg Softgel] Omeprazole 20 mg PO DAILY 06/03/17 10/16/18 Simvastatin [Zocor] 20 mg PO DAILY 06/03/17 10/16/18 Aspirin [Adult Low Dose Aspirin EC] 1 tab PO DAILY 03/01/18 03/01/18 Calcium Carbonate [Calcium] 2 tab PO DAILY 03/01/18 03/01/18 Cholecalciferol (Vitamin D3) 1 cap PO DAILY 03/01/18 03/01/18 [Vitamin D3] Cranberry 1 cap PO DAILY 03/01/18 03/01/18 Donepezil [Aricept] 5 mg PO DAILY 03/01/18 10/16/18 Multivitamin [Multivitamins] 1 cap PO DAILY 03/01/18 03/01/18 Vitamin E (Dl,Tocopheryl Acet) 1 cap PO DAILY 03/01/18 03/01/18 [Vitamin E] Duloxetine HCl 20 mg PO DAILY 10/16/18 10/16/18 Levothyroxine Sodium 100 mcg PO DAILY 10/16/18 10/16/18 Memantine HCl 10 mg PO BID 10/16/18 10/16/18 Potassium Chloride 10 meq PO DAILY 10/16/18 10/16/18 Spironolactone 25 mg PO DAILY 10/16/18 10/16/18 hydroCHLOROthiazide 25 mg PO DAILY 10/16/18 10/16/18 [Hydrochlorothiazide] metOLazone [Metolazone] 2.5 mg PO DAILY 10/16/18 10/16/18 Acetaminophen [Tylenol] 650 mg PO Q4HR PRN tablet 10/18/18 Calcium Carbonate [Tums (Calcium 500 mg PO TID PRN tablet 10/18/18 Carbonate 500mg)] Clindamycin [Cleocin] 600 mg PO TID #14 capsule 10/18/18 Famotidine [Pepcid] 20 mg PO DAILY tablet 10/18/18 Lactobacillus Rhamnosus GG 1 cap PO DAILY #30 capsule 10/18/18 [Culturelle] hydroCHLOROthiazide [Hydrodiuril] 25 mg PO DAILY tablet 10/18/18 traZODone [Desyrel] 50 mg PO QPM PRN tablet 10/18/18 Amox/Clav 875/125 [Augmentin] 1 each PO Q12H #20 tablet 10/23/18 hydrOXYzine pamoate [Hydroxyzine 1 - 2 tab PO Q6H PRN #20 capsule 10/23/18 Pamoate] - Allergies Allergies/Adverse Reactions: Allergies Allergy/AdvReac Type Severity Reaction Status Date / Time lisinopril Allergy Anaphylaxis Verified 10/16/18 15:07 rivastigmine [From Exelon] Allergy Rash Verified 10/16/18 15:07 rivastigmine tartrate * Allergy Rash Verified 10/16/18 15:07 [From Exelon] - Social History Does the pt smoke?: No Smoking Status: Former smoker Does the pt drink ETOH?: No Does the pt have substance abuse?: No - Immunizations Immunizations are current?: Yes - POLST Patient has POLST: No POLST Status: Full Code PD ED PE NORMAL - Vitals Vital signs reviewed: Yes - General General: Alert and oriented X 3, No acute distress - HEENT HEENT: Pharynx benign - Derm Derm: Other (She has cellulitis of both lower extremities, the calves and down that is within and slightly regressed from the margins of prior markings. There is also a macular rash that is diffuse most notable on the anterior neck and the thighs.) - Neuro Neuro: Alert and oriented X 3, Normal speech Results - Vitals Vitals: Vital Signs - 24 hr 10/23/18 11:44 Temperature 36.1 C L Heart Rate 96 Respiratory 20 Rate Blood Pressure 125/53 L O2 Saturation 94 Oxygen O2 Source [Without Activity] Room air O2 Source Room air Departure - Departure Disposition: 01 Home, Self Care Clinical Impression: Cellulitis Qualifiers: Site of cellulitis: extremity Site of cellulitis of extremity: lower extremity Laterality: unspecified laterality Qualified Code(s): L03.119 - Cellulitis of unspecified part of limb Drug reaction Qualifiers: Encounter type: initial encounter Qualified Code(s): T50.905A - Adverse effect of unspecified drugs, medicaments and biological substances, initial encounter Condition: Good Record reviewed to determine appropriate education?: Yes Instructions: Cellulitis Dc Prescriptions: Amox/Clav 875/125 [Augmentin] 1 each PO Q12H #20 tablet hydrOXYzine pamoate [Hydroxyzine Pamoate] 1 - 2 tab PO Q6H PRN #20 capsule PRN Reason: Itching Comments: Stop the clindamycin. You can substitute the new antibiotic instead. Return for new or worsening symptoms. Follow-up with your primary care physician within 3 days for recheck.
== END 2018-10-23 14:09 | disposition home or self-care (01) ==
LOC: ED 11:36
DX: L25.8 Unspecified contact dermatitis due to other agents (principal); L29.9 Pruritus, unspecified; T36.8X5A Adverse effect of other systemic antibiotics, initial encounter; L03.116 Cellulitis of left lower limb; L03.115 Cellulitis of right lower limb; I25.10 Atherosclerotic heart disease of native coronary artery without angina pectoris; I10 Essential (primary) hypertension; F03.90 Unspecified dementia, unspecified severity, without behavioral disturbance, psychotic disturbance, mood disturbance, and anxiety; E78.00 Pure hypercholesterolemia, unspecified; E03.9 Hypothyroidism, unspecified; G62.9 Polyneuropathy, unspecified; Z79.82 Long term (current) use of aspirin; Z87.891 Personal history of nicotine dependence
CPT/HCPCS: 99283; A9270; J7512

== ENCOUNTER 2018-10-24 14:09 | Outpatient (CLI) | payer MEDICARE, MEDICAID | END 2018-10-24 14:10 | disposition critical access hospital (66) | LOC: EMS 14:09 | PROVIDERS: ATTEND Surgery | DX: L50.9 Urticaria, unspecified (principal) | CPT/HCPCS: A0425; A0429 ==

== ENCOUNTER 2018-10-24 14:14 | Inpatient (IN) | payer MEDICARE, MEDICAID ==
--- NOTE | 2018-10-24 14:29 | ED Physician Documentation ---
PD HPI SKIN - Stated complaint Stated Complaint: RASH/HIVES - History obtained from History obtained from: Patient - History of Present Illness Timing - onset: How many days ago (she had been in hospital for cellulitis and was improving, d/c on Clindamycin and developed rash couple days later. Stopped the clinda but rash persisted. Seen in ER 2 days ago and had hydroxyzine Rx and Augmentin for the cellulitis. She is having worsening rash since, so not clear if persistent/worsening rash to the clinda, or now to Augmentin, or something else. Had increased rash today, and is bodywide, including face. No oral/tongue/throat swelling.) Timing - details: Gradual onset Location: Bodywide Quality / character: Itchy, Burning Improved by: No: Benadryl Associated symptoms: Facial swelling. No: Fever, Myalgias, Dyspnea, N/V/D Contributing factors: Exposed to medication Recently seen: Emergency Dept, Admitted Review of Systems Constitutional: denies: Fever, Myalgias Nose: denies: Rhinorrhea / runny nose, Congestion Throat: denies: Sore throat Cardiac: denies: Chest pain / pressure Respiratory: denies: Dyspnea, Cough GI: denies: Nausea, Vomiting, Diarrhea Skin: reports: Rash PD PAST MEDICAL HISTORY - Past Medical History Cardiovascular: Hypertension, High cholesterol, Coronary artery disease, Murmur Respiratory: COPD, Sleep apnea Neuro: Dementia, Peripheral neuropathy Endocrine/Autoimmune: HyPOthyroidism GI: GERD 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 : 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, Nocturia, Frequency HEENT: Chronic vision loss, Chronic sinusitis, Chronic hearing loss Psych: Depression Musculoskeletal: Osteoarthritis, Fibromyalgia, Chronic back pain Derm: None - Past Surgical History Past Surgical History: Yes Ortho: 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 - Present Medications Home Medications: Ambulatory Orders Medication Instructions Recorded Confirmed Ascorbic Acid [Vitamin C] 1 tab PO BID 06/03/17 10/24/18 Flaxseed Oil 1 tab PO TID 06/03/17 10/24/18 Fluoxetine HCl 40 mg PO BID 06/03/17 10/24/18 Gabapentin 300 mg PO BID 06/03/17 10/24/18 Hydrocodone/Acetaminophen 1 tab PO Q6H PRN 06/03/17 10/24/18 [Hydrocodone-Acetamin 7.5-325] Loperamide HCl [Loperamide] 1 tab PO DAILY 06/03/17 10/24/18 Montelukast [Singulair] 10 mg PO DAILY 06/03/17 10/24/18 [place]-3/Dha/Epa/Fish Oil [Fish Oil 1 tab PO TID 06/03/17 10/24/18 1,000 mg Softgel] Omeprazole 20 mg PO DAILY 06/03/17 10/24/18 Simvastatin [Zocor] 20 mg PO DAILY 06/03/17 10/24/18 Aspirin [Adult Low Dose Aspirin EC] 81 mg PO DAILY 03/01/18 10/24/18 Cholecalciferol (Vitamin D3) 1,000 unit PO DAILY 03/01/18 10/24/18 [Vitamin D3] Cranberry 1 cap PO DAILY 03/01/18 10/24/18 Donepezil [Aricept] 5 mg PO DAILY 03/01/18 10/24/18 Multivitamin [Multivitamins] 1 cap PO DAILY 03/01/18 10/24/18 Vitamin E (Dl,Tocopheryl Acet) 1 cap PO DAILY 03/01/18 10/24/18 [Vitamin E] Duloxetine HCl 20 mg PO DAILY 10/16/18 10/24/18 Levothyroxine Sodium 100 mcg PO DAILY 10/16/18 10/24/18 Memantine HCl 10 mg PO BID 10/16/18 10/24/18 Spironolactone 25 mg PO DAILY 10/16/18 10/24/18 Acetaminophen [Tylenol] 650 mg PO Q4HR PRN tablet 10/18/18 10/24/18 Calcium Carbonate [Tums (Calcium 500 mg PO TID PRN tablet 10/18/18 10/24/18 Carbonate 500mg)] Famotidine [Pepcid] 20 mg PO DAILY tablet 10/18/18 10/24/18 Lactobacillus Rhamnosus GG 1 cap PO DAILY #30 capsule 10/18/18 10/24/18 [Culturelle] hydroCHLOROthiazide [Hydrodiuril] 25 mg PO DAILY tablet 10/18/18 10/24/18 traZODone [Desyrel] 50 mg PO QPM PRN tablet 10/18/18 10/24/18 Amox/Clav 875/125 [Augmentin] 1 each PO Q12H #20 tablet 10/23/18 10/24/18 hydrOXYzine pamoate [Hydroxyzine 1 - 2 tab PO Q6H PRN #20 capsule 10/23/18 10/24/18 Pamoate] - Allergies Allergies/Adverse Reactions: Allergies Allergy/AdvReac Type Severity Reaction Status Date / Time lisinopril Allergy Anaphylaxis Verified 10/16/18 15:07 rivastigmine [From Exelon] Allergy Rash Verified 10/16/18 15:07 rivastigmine tartrate * Allergy Rash Verified 10/16/18 15:07 [From Exelon] - Social History Does the pt smoke?: No Smoking Status: Never smoker Does the pt drink ETOH?: No Does the pt have substance abuse?: No - Immunizations Immunizations are current?: Yes - POLST Patient has POLST: No POLST Status: Full Code PD ED PE NORMAL - Vitals Vital signs reviewed: Yes - General General: Alert and oriented X 3, No acute distress, Well developed/nourished - HEENT HEENT: Moist mucous membranes, Pharynx benign, Other (no oral edema noted. Normal swallow and breathing. ) - Neck Neck: Supple, no meningeal sign, No adenopathy - Cardiac Cardiac: RRR, No murmur - Respiratory Respiratory: Clear bilaterally - Abdomen Abdomen: Soft, Non tender, Non distended - Female Female : Deferred - Rectal Rectal: Deferred - Back Back: No CVA TTP - Derm Derm: Normal color, Warm and dry, Other (diffuse blotchy slightly raised nonvesicular rash c/w hives. The anterior lower legs with marked uniform redness c/w cellulitis that is beyond the boundaries of the previously drawn lines, though blurs with the hives appearance rash. ) - Extremities Extremities: No tenderness to palpate, Normal ROM s pain Results - Vitals Vitals: Vital Signs - 24 hr 10/24/18 10/24/18 10/24/18 14:30 15:04 15:30 Temperature 36.9 C Heart Rate 77 84 81 Respiratory 16 15 18 Rate Blood Pressure 147/78 H 179/62 H 168/67 H O2 Saturation 92 95 95 10/24/18 16:00 Temperature Heart Rate 87 Respiratory 18 Rate Blood Pressure 168/65 H O2 Saturation 95 Oxygen O2 Source [Without Activity] Room air O2 Source Room air - Labs Labs: Laboratory Tests 10/24/18 10/24/18 10/24/18 15:18 15:18 15:18 WBC 14.7 H RBC 3.98 L Hgb 12.3 Hct 36.1 L MCV 90.7 MCH 31.0 MCHC 34.2 RDW 12.8 Plt Count 496 H MPV 6.9 L Neut # (Auto) 10.0 H Lymph # (Auto) 2.5 [place] # (Auto) 1.1 H Eos # (Auto) 1.2 H Baso # (Auto) 0.0 Absolute Nucleated RBC 0.01 Nucleated RBC % 0.0 Sodium 127 L Potassium 3.2 L Chloride 86 L Carbon Dioxide 29 Anion Gap 12.0 BUN 20 Creatinine 1.0 Estimated GFR (MDRD) 54 L Glucose 132 H Calcium 8.4 L Total Bilirubin 0.7 AST 24 ALT 23 Alkaline Phosphatase 47 Total Creatine Kinase 70 C-Reactive Protein 2.2 H Total Protein 6.5 L Albumin 3.2 Globulin 3.3 Albumin/Globulin Ratio 1.0 Lipase 22 PD MEDICAL DECISION MAKING - ED course Complexity details: considered differential (appearing difuse cutaneous alllergic reaction without any anaphylaxis evident. No blistering to suggest TEN. Her cellulitis appears very red, so presume worsening, and extended past prior marked boundaries. Does not look bodywide uniform to suggest staph scalded skin or such. ), d/w patient, d/w system sales consultant (Hospitalist - has hives reaction and needs further treatment. Main issue is cellulitis is worsening again and not responding to Augmentin. Question next abx, as seems allergic to Clinda. Likely need IV again in hospital until improving again. ) Departure - Departure Disposition: [facility] DC/Xfer Clinical Impression: Cellulitis, leg Qualifiers: Laterality: unspecified laterality Qualified Code(s): L03.119 - Cellulitis of unspecified part of limb Allergic reaction Qualifiers: Encounter type: initial encounter Qualified Code(s): T78.40XA - Allergy, unspecified, initial encounter Condition: Stable Record reviewed to determine appropriate education?: Yes Discharge Date/Time: 10/24/18 16:40
[2018-10-24] MEDS ORDERED: diphenhydrAMINE INJ 50 MG/ML VIAL IVP STA ×2 (14:45→16:08)
[2018-10-24] MEDS ORDERED: FAMOTIDINE 20 MG/2 ML VIAL IVP STA (14:47)
[2018-10-24] MEDS ORDERED: DEXAMETHASONE 10 MG/ML VIAL IVP STA (14:47)
[2018-10-24] MEDS ORDERED: CETIRIZINE 10 MG TABLET PO STA (14:47)
[2018-10-24 15:33] LABS: EOSINOPHILS # (AUTO) 1.2 10^3/uL (0.0-0.7); EOSINOPHILS % (AUTO) 8.1 %; HGB - HEMOGLOBIN 12.3 g/dL (12.0-16.0); LYMPHOCYTES # (AUTO) 2.5 10^3/uL (1.5-3.5); LYMPHOCYTES % (AUTO) 16.8 %; MEAN CORPUSCULAR HGB CONC 34.2 g/dL (32.0-36.0); MEAN CORPUSCULAR VOLUME 90.7 fL (81.0-99.0); MEAN PLATELET VOLUME 6.9 fL (7.9-10.8); MONOCYTES # (AUTO) 1.1 10^3/uL (0.0-1.0); MONOCYTES % (AUTO) 7.3 %; NEUTROPHILS % (AUTO) 67.8 %; PLT - PLATELET COUNT 496 10^3/uL (130-450); RED BLOOD COUNT 3.98 10^6/uL (4.20-5.40); RED CELL DISTRIBUTION WIDTH 12.8 % (12.0-15.0); WHITE BLOOD COUNT 14.7 x10^3/uL (4.8-10.8)
[2018-10-24 15:39] LABS: ALBUMIN 3.2 g/dL (3.2-5.5); BILIRUBIN,TOTAL 0.7 mg/dL (0.2-1.0); CALCIUM 8.4 mg/dL (8.5-10.3); TOTAL PROTEIN 6.5 g/dL (6.7-8.2)
[2018-10-24] MEDS ORDERED: CEFEPIME 2 GM in SODIUM CHLORIDE 0.9% MINIBAG 100 ML IV STA (16:11)
--- NOTE | 2018-10-24 16:13 | HISTORY & PHYSICAL EXAMINATION ---
Chief Complaint - Chief Complaint Chief Complaint: diffuse rash and BLE cellulitis History of Present Illness - Admitted From Admitted From:: ER - History Obtained From Records Reviewed: Yes History obtained from: Patient, patient's caregiver Meagan and medical record Exam Limitations: None - History of Present Illness HPI Comment/Other: Eliana Hernandez is a morbidly obese 78-year old female with a past medical history significant for hypertension, hyperlipidemia, CAD, heart murmur, COPD, urinary incontinence, hearing loss, dementia, osteoarthritis, fibromyalgia, depression, hypothyroidism, allergic rhinitis, GERD, chronic cough, insomnia and falls. She presents to the ER today with one of her caregivers, Meagan, for in creasing rash and cellulitis. Of note, patient was recently discharged from [facility] on 10/18/2018 after being admitted on 10/16/2018 for BLE cellulitis. She was treated with IV clindamycin with improvement in her BLE cellulitis and discharged on PO clindamycin with instructions for close follow-up with her PCP. On Tuesday night or Tuesday morning, she developed a diffuse rash. EMS was called and they advised the patient to stop taking the antibiotic. She presented to the ER yesterday and was given augmentin and hydroxyzine. She has taken 2 doses of augmention. She presents to the ER again today by the urging of her caregiver because the rash has continued to spread. In route medics gave her epinephrine. In the ER she was given diphenhydramine, famotidine and certrizine. Lab work revealed a WBC of 14.7, eosinophilia 1.2, platelets 496, sodium 127, potassium 3.2. Her respiratory system is unaffected by the rash. She is stable on room and denies shortness of breath. She does not have increased work of breathing. She states that her head itches currently and yesterday her arms itched. She denies having a rash like this before. She denies chest pain, palpitations, nausea/vomiting. She has had diarrhea. She is being admitted for IV antibiotics for her continued cellulitis. Patient wishes to be a full code. History - Past Medical History Cardiovascular: reports: Hypertension, High cholesterol, Coronary artery disease, Murmur Respiratory: reports: COPD, Sleep apnea Neuro: reports: Dementia, Peripheral neuropathy Endocrine/Autoimmune: reports: HyPOthyroidism GI: reports: GERD CRIMINAL PROFILER: reports: Fibroids : reports: 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, Nocturia, Frequency HEENT: reports: Chronic vision loss, Chronic sinusitis, Chronic hearing loss Psych: reports: Depression Musculoskeletal: reports: Osteoarthritis, Fibromyalgia, Chronic back pain Derm: reports: None MRSA Hx?: No - Past Surgical History Ortho: reports: 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 surgery /CRIMINAL PROFILER: reports: 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 - Family & Social History Family History: Mother: , Father: , Sister: , Cancer, Brother: , Cancer Family History Comment/Other: The patient's mother had Alzheimer's, father of old age. Her 2 sisters and one brother of cancer. She has one remaining brother who is alive and well. Living arrangement: At home Living Situation: Alone (with caregiver support) Social History Notes: The patient was born in [place], , had one son who now lives in [place]. She was from her son's father when her son was very young and never remarried. 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 She lives independently near the hospital in [place] and has care givers about 5 days per week who help with cooking, cleaning and errands. She denies the use of alcohol, tobacco or illicit drugs. She wishes to be a FULL code. - Substance History Use: Uses substance without health or social issues: NONE - POLST Patient has POLST: No POLST Status: Full Code Meds/Allgy - Home Medications Home Medications: Ambulatory Orders Medication Instructions Recorded Confirmed Ascorbic Acid [Vitamin C] 1 tab PO BID 06/03/17 10/24/18 Flaxseed Oil 1 tab PO TID 06/03/17 10/24/18 Fluoxetine HCl 40 mg PO BID 06/03/17 10/24/18 Gabapentin 300 mg PO BID 06/03/17 10/24/18 Hydrocodone/Acetaminophen 1 tab PO Q6H PRN 06/03/17 10/24/18 [Hydrocodone-Acetamin 7.5-325] Loperamide HCl [Loperamide] 1 tab PO DAILY 06/03/17 10/24/18 Montelukast [Singulair] 10 mg PO DAILY 06/03/17 10/24/18 [place]-3/Dha/Epa/Fish Oil [Fish Oil 1 tab PO TID 06/03/17 10/24/18 1,000 mg Softgel] Omeprazole 20 mg PO DAILY 06/03/17 10/24/18 Simvastatin [Zocor] 20 mg PO DAILY 06/03/17 10/24/18 Aspirin [Adult Low Dose Aspirin EC] 81 mg PO DAILY 03/01/18 10/24/18 Cholecalciferol (Vitamin D3) 1,000 unit PO DAILY 03/01/18 10/24/18 [Vitamin D3] Cranberry 1 cap PO DAILY 03/01/18 10/24/18 Donepezil [Aricept] 5 mg PO DAILY 03/01/18 10/24/18 Multivitamin [Multivitamins] 1 cap PO DAILY 03/01/18 10/24/18 Vitamin E (Dl,Tocopheryl Acet) 1 cap PO DAILY 03/01/18 10/24/18 [Vitamin E] Duloxetine HCl 20 mg PO DAILY 10/16/18 10/24/18 Levothyroxine Sodium 100 mcg PO DAILY 10/16/18 10/24/18 Memantine HCl 10 mg PO BID 10/16/18 10/24/18 Spironolactone 25 mg PO DAILY 10/16/18 10/24/18 Acetaminophen [Tylenol] 650 mg PO Q4HR PRN tablet 10/18/18 10/24/18 Calcium Carbonate [Tums (Calcium 500 mg PO TID PRN tablet 10/18/18 10/24/18 Carbonate 500mg)] Famotidine [Pepcid] 20 mg PO DAILY tablet 10/18/18 10/24/18 Lactobacillus Rhamnosus GG 1 cap PO DAILY #30 capsule 10/18/18 10/24/18 [Culturelle] hydroCHLOROthiazide [Hydrodiuril] 25 mg PO DAILY tablet 10/18/18 10/24/18 traZODone [Desyrel] 50 mg PO QPM PRN tablet 10/18/18 10/24/18 Amox/Clav 875/125 [Augmentin] 1 each PO Q12H #20 tablet 10/23/18 10/24/18 hydrOXYzine pamoate [Hydroxyzine 1 - 2 tab PO Q6H PRN #20 capsule 10/23/18 10/24/18 Pamoate] - Allergies Allergies/Adverse Reactions: Allergies Allergy/AdvReac Type Severity Reaction Status Date / Time lisinopril Allergy Anaphylaxis Verified 10/16/18 15:07 rivastigmine [From Exelon] Allergy Rash Verified 10/16/18 15:07 rivastigmine tartrate * Allergy Rash Verified 10/16/18 15:07 [From Exelon] Review of Systems - Constitutional Constitutional: reports: Fatigue, Poor appetite. denies: Fever, Chills - Eyes Eyes: denies: Blurred vision - Ears, Nose & Throat Ears, Nose & Throat: denies: Vertigo, Nasal congestion, Sore throat - Cardiovascular Cariovascular: denies: Irregular heart rate, Palpitations, Chest pain - Respiratory Respiratory: denies: Cough, Wheezing - Gastrointestinal Gastrointestinal: reports: Diarrhea. denies: Abdominal pain, Abdominal dis tention, Constipation, Nausea, Vomiting - Genitourinary Genitourinary: reports: 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 - Musculoskeletal Musculoskeletal: reports: Muscle weakness - Integumentary Integumentary: reports: Rash, Pruritis - Neurological Neurological: reports: General weakness, Memory problems - Psychiatric Psychiatric: denies: Depression, Anxiety - All Other Systems All Other Systems: reports: Reviewed and negative Prior Level of Functionality: Lives independently, has caregiver support. Uses a walker for ambulation. Exam - Vital Signs Reviewed Vital Signs: Yes Vital Signs: Vital Signs x48h Temp Pulse Resp BP Pulse Ox 10/24/18 16:00 87 18 168/65 H 95 10/24/18 15:30 81 18 168/67 H 95 10/24/18 15:04 84 15 179/62 H 95 10/24/18 14:30 36.9 C 77 16 147/78 H 92 - Physical Exam General Appearance: positive: No acute distress, Alert Eyes Bilateral: positive: Normal inspection, PERRL, EOMI ENT: positive: Dry mucous membranes Neck: positive: Nml inspection, No JVD Respiratory: positive: Chest non-tender, No respiratory distress, Breath sounds nml Cardiovascular: positive: Regular rate & rhythm, Systolic murmur. negative: No gallop, Tachycardia Peripheral Pulses: positive: 2+ Abdomen: positive: Non-tender, Nml bowel sounds, No distention (obese). negative: Guarding, Rebound Skin: positive: Warm, Dry (Maculopapular Rash is more prominent in lower BLE where she has cellulitis and appears to lessen as it goes up to the knees/thighs. Her abdomen/torso and face is with rash also, to a lesser degree.), Skin rash Extremities: positive: No pedal edema, Other (cellulitis to lower BLE. No edema is present but it is warm and slightly tender to touch. Her medial right ankle has a blister that has partially erupted.) Neurologic/Psychiatric: positive: Oriented x3, CN's nml (2-12), Sensation nml, Weakness Conclusion/Plan - Problem List (1) Cellulitis, leg Conclusion/Plan: Patient initially seen by PCP for BLE cellulitis and treated with keflex. Her cellulitis worsened and she was admitted to the hospital on 10/16/2018. She was then started on IV clindamycin. She was transitioned to oral clindamycin and discharged on PO clindamycin. Over the weekend she developed a rash and her clindamycin was stopped. She presented to the ER yesterday and was given a prescription for augmentin. She took 2 doses of this, but her caregiver thought that her rash was continuing to spread and brought her to the ER today. She is afebrile, non-toxic appearing with a WBC of 14.7. CRP 2.2. Her lower BLE are erythematous, slightly tender, without edema. When she discharged on 10/18/2018, her BLE cellulitis was almost completely resolved. Plan: admit to inpatient start IV vancomycin and cefepime gentle IV hydration check CBC and CRP tomorrow Qualifiers: Laterality: unspecified laterality Qualified Code(s): L03.119 - Cellulitis of unspecified part of limb (2) Drug induced rash with eosinophilia and systemic symptoms Conclusion/Plan: Likely related to clindamycin. Eosinophils 1.2 on CBC. She received epinephrine, diphenhydramine, famotidine and certizine in the ER. She is breathing comfortably on room air. Maculopapular rash is diffuse on her body. Clindamycin was discontinued on Tuesday10/21/2018. Plan: continue hydroxyzine PRN continue famotidine and certizine check CBC tomorrow will consider adding prednisone tomorrow if rash continues to worsen (3) Depression Conclusion/Plan: stable Plan: continue home antidepressants (4) Chronic pain Conclusion/Plan: At baseline. Plan: continue gabapentin and PRN hydrocodone monitor for somnolence Qualifiers: Chronic pain type: chronic pain syndrome Qualified Code(s): G89.4 - Chronic pain syndrome (5) Dementia Conclusion/Plan: At baseline. Able to give history and answer questions appropriately. Plan: continue home medications, aricept and namenda Qualifiers: Dementia type: Alzheimer's disease (6) Morbid obesity Conclusion/Plan: BMI 41 kg/m2. Plan: dietitian consult encouraged patient to lose weight and make healthy diet choices (7) Hypokalemia Conclusion/Plan: Potassium 3.2. Plan: replace with 40 mEq KCL repeat potassium in the morning (8) Hyponatremia Conclusion/Plan: Na 127. Likely related to hypovolemia and diuretic use. Plan: gentle IV hydration follow-up sodium level in the morning - Lab Results Fish Bones: 10/24/18 15:18 10/24/18 15:18
[2018-10-24] MEDS ORDERED: traZODone 50 MG TABLET PO PRN (16:56)
[2018-10-24] MEDS ORDERED: hydrOXYzine PAMOATE 25 MG CAPSULE PO PRN (16:56)
[2018-10-24] MEDS ORDERED: VANCOMYCIN PER PHARMACY 100 GM in SODIUM CHLORIDE 0.9% 250 ML IV SCH (17:00)
[2018-10-24] MEDS: SODIUM CHLORIDE 0.9% 1,000 ML IV SCH (17:43)
[2018-10-24] MEDS: SODIUM CHLORIDE FLUSH 0.9% 10 ML SYRINGE IVP SCH (17:44)
[2018-10-24] MEDS ORDERED: VANCOMYCIN INJ 2 GM in SODIUM CHLORIDE 0.9% 500 ML IV SCH (18:00)
[2018-10-24] MEDS: ACETAMINOPHEN 325 MG TABLET PO PRN (19:40)
[2018-10-24] MEDS: oxyCODONE 5 MG TABLET PO PRN (19:40)
[2018-10-24] MEDS: GABAPENTIN 300 MG CAPSULE PO SCH (21:51)
[2018-10-24] MEDS: FLUoxetine 10 MG CAPSULE PO SCH (21:52)
[2018-10-24] MEDS: MEMANTINE 5 MG TABLET PO SCH (21:53)
[2018-10-24] MEDS: CEFEPIME 2 GM in SODIUM CHLORIDE 0.9% MINIBAG 100 ML IV SCH (22:02)
[2018-10-25] MEDS: SODIUM CHLORIDE FLUSH 0.9% 10 ML SYRINGE IVP SCH ×3 (00:03→16:57)
[2018-10-25] MEDS: oxyCODONE 5 MG TABLET PO PRN ×4 (05:19→23:33)
[2018-10-25] MEDS: ACETAMINOPHEN 325 MG TABLET PO PRN (05:19)
[2018-10-25 06:19] LABS: BASOPHILS % (AUTO) 0.2 %; EOSINOPHILS # (AUTO) 0.1 10^3/uL (0.0-0.7); HGB - HEMOGLOBIN 11.1 g/dL (12.0-16.0); LYMPHOCYTES # (AUTO) 1.3 10^3/uL (1.5-3.5); LYMPHOCYTES % (AUTO) 10.1 %; MEAN CORPUSCULAR HEMOGLOBIN 30.5 pg (27.0-31.0); MEAN CORPUSCULAR HGB CONC 32.5 g/dL (32.0-36.0); MEAN CORPUSCULAR VOLUME 94.1 fL (81.0-99.0); MEAN PLATELET VOLUME 7.1 fL (7.9-10.8); MONOCYTES # (AUTO) 0.7 10^3/uL (0.0-1.0); MONOCYTES % (AUTO) 5.4 %; NEUTROPHILS # (AUTO) 10.8 10^3/uL (1.5-6.6); NEUTROPHILS % (AUTO) 83.3 %; PLT - PLATELET COUNT 451 10^3/uL (130-450); RED BLOOD COUNT 3.63 10^6/uL (4.20-5.40); RED CELL DISTRIBUTION WIDTH 12.9 % (12.0-15.0)
[2018-10-25 06:36] LABS: CALCIUM 8.1 mg/dL (8.5-10.3); CREATININE 0.8 mg/dL (0.4-1.0); CRP - C-REACTIVE PROTEIN 2.5 mg/dL (0-1.0)
[2018-10-25] MEDS: SODIUM CHLORIDE 0.9% 1,000 ML IV SCH (08:51)
[2018-10-25] MEDS: ENOXAPARIN 30 MG/0.3 ML SYRINGE SUBQ SCH (08:51)
[2018-10-25] MEDS: ATORVASTATIN 10 MG TABLET PO SCH (08:52)
[2018-10-25] MEDS: FAMOTIDINE 20 MG TABLET PO SCH (08:52)
[2018-10-25] MEDS: ASPIRIN EC 81 MG TABLET PO SCH (08:52)
[2018-10-25] MEDS: GABAPENTIN 300 MG CAPSULE PO SCH ×2 (08:52→20:06)
[2018-10-25] MEDS: POLYETHYLENE GLYCOL 3350 17 GM PACKET PO SCH (08:52)
[2018-10-25] MEDS: CETIRIZINE 10 MG TABLET PO SCH (08:52)
[2018-10-25] MEDS: FLUoxetine 10 MG CAPSULE PO SCH ×2 (08:52→20:05)
[2018-10-25] MEDS: MONTELUKAST 10 MG TABLET PO SCH (08:52)
[2018-10-25] MEDS: MEMANTINE 5 MG TABLET PO SCH ×2 (08:52→20:05)
[2018-10-25] MEDS: DONEPEZIL 5 MG TABLET PO SCH (08:52)
[2018-10-25] MEDS: LACTOBACILLUS RHAMNOSUS GG CAPSULE PO SCH (08:52)
[2018-10-25] MEDS: CEFEPIME 2 GM in SODIUM CHLORIDE 0.9% MINIBAG 100 ML IV SCH ×2 (08:53→20:06)
[2018-10-25] MEDS: LEVOTHYROXINE 100 MCG TABLET PO SCH (08:53)
[2018-10-25] MEDS: DULoxetine 20 MG CAPSULE PO SCH (08:56)
--- NOTE | 2018-10-25 09:24 | PROVIDER PROGRESS NOTE ---
Subjective - Prog Note Date Prog Note Date: 10/25/18 Prog Note Time: 07:35 - Subjective Subjective: Reports she did not sleep well last night, she is requesting trazodone Her diffuse maculopapular rash continues, it is nonpruritic WBC 13 today She is afebrile eosinophils 0.1 continues on vanc/cefepime BLE still will erythema and warmth. Current Medications - Current Medications Current Medications: Acetaminophen (Tylenol) 650 mg PO Q4HR PRN PRN Reason: Pain 1 to 4 Last Admin: 10/25/18 05:19 Dose: 650 mg Aspirin (Ecotrin) 81 mg PO DAILY [facility] Last Admin: 10/25/18 08:52 Dose: 81 mg Atorvastatin Calcium (Lipitor) 10 mg PO DAILY [facility] Last Admin: 10/25/18 08:52 Dose: 10 mg Cetirizine HCl (Zyrtec) 10 mg PO DAILY [facility] Last Admin: 10/25/18 08:52 Dose: 10 mg Donepezil HCl (Aricept) 5 mg PO DAILY [facility] Last Admin: 10/25/18 08:52 Dose: 5 mg Duloxetine HCl (Cymbalta) 20 mg PO DAILY [facility] Last Admin: 10/25/18 08:56 Dose: 20 mg Enoxaparin Sodium (Lovenox) 30 mg SUBQ DAILY [facility] Last Admin: 10/25/18 08:51 Dose: 30 mg Famotidine (Pepcid) 20 mg PO DAILY [facility] Last Admin: 10/25/18 08:52 Dose: 20 mg Fluoxetine HCl (Prozac) 40 mg PO BID [facility] Last Admin: 10/25/18 08:52 Dose: 40 mg Gabapentin (Neurontin) 300 mg PO BID [facility] Last Admin: 10/25/18 08:52 Dose: 300 mg Hydroxyzine Pamoate (Vistaril) 25 mg PO Q6H PRN PRN Reason: ITCHING Last Admin: 10/24/18 17:42 Dose: 25 mg Cefepime HCl 2 gm/ Sodium (Chloride) 100 mls @ 200 mls/hr IV BID [facility] Last Infusion: 10/25/18 09:23 Dose: Infused Sodium Chloride (Normal Saline 0.9%) 1,000 mls @ 75 mls/hr IV .[id number] [facility] Stop: 10/25/18 19:39 Last Infusion: 10/25/18 09:23 Dose: 75 mls/hr Vancomycin HCl 1 gm/ Sodium (Chloride) 250 mls @ 167 mls/hr IV Q24H [facility] Lactobacillus Rhamnosus (Culturelle) 1 cap PO DAILY [facility] Last Admin: 10/25/18 08:52 Dose: 1 cap Levothyroxine Sodium (Synthroid) 100 mcg PO DAILY [facility] Last Admin: 10/25/18 08:53 Dose: 100 mcg Memantine (Namenda) 10 mg PO BID [facility] Last Admin: 10/25/18 08:52 Dose: 10 mg Montelukast Sodium (Singulair) 10 mg PO DAILY [facility] Last Admin: 10/25/18 08:52 Dose: 10 mg Oxycodone HCl (Roxicodone) 5 mg PO Q6H PRN PRN Reason: Pain 5 to 7 Last Admin: 10/25/18 11:24 Dose: 5 mg Polyethylene Glycol (Miralax) 17 gm PO DAILY [facility] Last Admin: 10/25/18 08:52 Dose: 17 gm Sodium Chloride (Normal Saline Flush 0.9%) 10 ml IVP PRN PRN PRN Reason: NEEDED PER PROVIDER ORDERS Sodium Chloride (Normal Saline Flush 0.9%) 10 ml IVP 0100,0900,1700 [facility] Last Admin: 10/25/18 07:29 Dose: Not Given Trazodone HCl (Desyrel) 50 mg PO QPM PRN PRN Reason: Insomnia Home Medications: Ascorbic Acid [Vitamin C] 1 tab PO BID 06/03/17 Flaxseed Oil 1 tab PO TID 06/03/17 Fluoxetine HCl 40 mg PO BID 06/03/17 Gabapentin 300 mg PO BID 06/03/17 Hydrocodone/Acetaminophen [Hydrocodone-Acetamin 7.5-325] 1 tab PO Q6H PRN 06/03/17 Loperamide HCl [Loperamide] 1 tab PO DAILY 06/03/17 Montelukast [Singulair] 10 mg PO DAILY 06/03/17 [place]-3/Dha/Epa/Fish Oil [Fish Oil 1,000 mg Softgel] 1 tab PO TID 06/03/17 Omeprazole 20 mg PO DAILY 06/03/17 Simvastatin [Zocor] 20 mg PO DAILY 06/03/17 Aspirin [Adult Low Dose Aspirin EC] 81 mg PO DAILY 03/01/18 Cholecalciferol (Vitamin D3) [Vitamin D3] 1,000 unit PO DAILY 03/01/18 Cranberry 1 cap PO DAILY 03/01/18 Donepezil [Aricept] 5 mg PO DAILY 03/01/18 Multivitamin [Multivitamins] 1 cap PO DAILY 03/01/18 Vitamin E (Dl,Tocopheryl Acet) [Vitamin E] 1 cap PO DAILY 03/01/18 Duloxetine HCl 20 mg PO DAILY 10/16/18 Levothyroxine Sodium 100 mcg PO DAILY 10/16/18 Memantine HCl 10 mg PO BID 10/16/18 Spironolactone 25 mg PO DAILY 10/16/18 Objective - Vital Signs/Intake & Output Reviewed Vital Signs: Yes Vital Signs: Vital Signs x48h Temp Pulse Resp BP Pulse Ox 10/25/18 07:45 37.2 C 71 18 140/65 H 95 10/25/18 05:41 37.0 C 71 16 148/85 H 91 L Intake & Output: Intake & Output 10/22/18 10/23/18 10/24/18 10/25/18 23:59 23:59 23:59 23:59 Intake Total 1360 1833.75 Output Total 700 850 Balance 660 983.75 - Objective General Appearance: positive: No acute distress, Alert (Sitting up in the chair eating lunch) Eyes Bilateral: positive: Normal inspection, PERRL, EOMI ENT: positive: ENT inspection nml, Pharynx nml, No signs of dehydration Neck: positive: Nml inspection, Trachea midline Respiratory: positive: Chest non-tender, No respiratory distress, Breath sounds nml. negative: Wheezes, Rales, Rhonchi Cardiovascular: positive: Regular rate & rhythm. negative: Tachycardia Peripheral Pulses: 2+ Dorsalis pedis (R), 2+ Dorsalis pedis (L) Abdomen: positive: Non-tender, Nml bowel sounds, No distention. negative: Gua rding, Rebound Skin: positive: Warm (Blister to medial lower right leg has opened. Diffuse maculopapular rash to entire body, non-pruritis. BLE warm with erythema.), Dry, Skin rash Neurologic/Psychiatric: positive: Oriented x3, CN's nml (2-12), Sensation nml, Mood/affect nml, Weakness - Lab Results Fish Bones: 10/25/18 05:53 10/25/18 05:53 Other Labs: Lab Results x24hrs 10/25/18 10/25/18 10/24/18 Range/Units 05:53 05:53 17:16 WBC 13.0 H (4.8-10.8) x10^3/uL RBC 3.63 L (4.20-5.40) 10^6/uL Hgb 11.1 L (12.0-16.0) g/dL Hct 34.2 L (37.0-47.0) % MCV 94.1 (81.0-99.0) fL MCH 30.5 (27.0-31.0) pg MCHC 32.5 (32.0-36.0) g/dL RDW 12.9 (12.0-15.0) % Plt Count 451 H (130-450) 10^3/uL MPV 7.1 L (7.9-10.8) fL Neut # (Auto) 10.8 H (1.5-6.6) 10^3/uL Lymph # (Auto) 1.3 L (1.5-3.5) 10^3/uL [place] # (Auto) 0.7 (0.0-1.0) 10^3/uL Eos # (Auto) 0.1 (0.0-0.7) 10^3/uL Baso # (Auto) 0.0 (0.0-0.1) 10^3/uL Absolute Nucleated RBC 0.00 x10^3/uL Nucleated RBC % 0.0 /100WBC Sodium 137 (135-145) mmol/L Potassium 3.7 (3.5-5.0) mmol/L Chloride 98 L (101-111) mmol/L Carbon Dioxide 28 (21-32) mmol/L Anion Gap 11.0 (6-13) BUN 16 (6-20) mg/dL Creatinine 0.8 (0.4-1.0) mg/dL Estimated GFR (MDRD) 69 L (>89) Glucose 135 H (70-100) mg/dL Lactic Acid 2.1 (0.5-2.2) mmol/L Calcium 8.1 L (8.5-10.3) mg/dL Total Bilirubin (0.2-1.0) mg/dL AST (10-42) IU/L ALT (10-60) IU/L Alkaline Phosphatase (42-121) IU/L Total Creatine Kinase (22-269) IU/L C-Reactive Protein 2.5 H (0-1.0) mg/dL Total Protein (6.7-8.2) g/dL Albumin (3.2-5.5) g/dL Globulin (2.1-4.2) g/dL Albumin/Globulin Ratio (1.0-2.2) Lipase (22-51) U/L 10/24/18 10/24/18 10/24/18 Range/Units 15:18 15:18 15:18 WBC 14.7 H (4.8-10.8) x10^3/uL RBC 3.98 L (4.20-5.40) 10^6/uL Hgb 12.3 (12.0-16.0) g/dL Hct 36.1 L (37.0-47.0) % MCV 90.7 (81.0-99.0) fL MCH 31.0 (27.0-31.0) pg MCHC 34.2 (32.0-36.0) g/dL RDW 12.8 (12.0-15.0) % Plt Count 496 H (130-450) 10^3/uL MPV 6.9 L (7.9-10.8) fL Neut # (Auto) 10.0 H (1.5-6.6) 10^3/uL Lymph # (Auto) 2.5 (1.5-3.5) 10^3/uL [place] # (Auto) 1.1 H (0.0-1.0) 10^3/uL Eos # (Auto) 1.2 H (0.0-0.7) 10^3/uL Baso # (Auto) 0.0 (0.0-0.1) 10^3/uL Absolute Nucleated RBC 0.01 x10^3/uL Nucleated RBC % 0.0 /100WBC Sodium 127 L (135-145) mmol/L Potassium 3.2 L (3.5-5.0) mmol/L Chloride 86 L (101-111) mmol/L Carbon Dioxide 29 (21-32) mmol/L Anion Gap 12.0 (6-13) BUN 20 (6-20) mg/dL Creatinine 1.0 (0.4-1.0) mg/dL Estimated GFR (MDRD) 54 L (>89) Glucose 132 H (70-100) mg/dL Lactic Acid (0.5-2.2) mmol/L Calcium 8.4 L (8.5-10.3) mg/dL Total Bilirubin 0.7 (0.2-1.0) mg/dL AST 24 (10-42) IU/L ALT 23 (10-60) IU/L Alkaline Phosphatase 47 (42-121) IU/L Total Creatine Kinase 70 (22-269) IU/L C-Reactive Protein 2.2 H (0-1.0) mg/dL Total Protein 6.5 L (6.7-8.2) g/dL Albumin 3.2 (3.2-5.5) g/dL Globulin 3.3 (2.1-4.2) g/dL Albumin/Globulin Ratio 1.0 (1.0-2.2) Lipase 22 (22-51) U/L ABX Reporting Has patient been on IV antibiotics over the past 48 hours?: Yes Assessment/Plan - Problem List (1) Cellulitis, leg Impression: Patient initially seen by PCP for BLE cellulitis and treated with keflex. Her cellulitis worsened and she was admitted to the hospital on 10/16/2018. She was then started on IV clindamycin. She was transitioned to oral clindamycin and discharged on PO clindamycin. Over the weekend she developed a rash and her clindamycin was stopped. She presented to the ER yesterday and was given a prescription for augmentin. She took 2 doses of this, but her caregiver thought that her rash was continuing to spread and brought her to the ER today. She is afebrile, non-toxic appearing with a WBC of 14.7. CRP 2.2. Her lower BLE are erythematous, slightly tender, without edema. When she discharged on 10/18/2018, her BLE cellulitis was almost completely resolved. CRP is stable today. WBC 13. Plan: continue IV vancomycin and cefepime, if patient's cellulitis improves and WBC continues to decrease, will transition to oral antibiotics tomorrow In speaking with pharmacist on admission about this case, he recommended bactrim DS 2 pills BID for oral therapy. IV hydration to discontinue this evening check CBC and CRP tomorrow Qualifiers: Laterality: unspecified laterality Qualified Code(s): L03.119 - Cellulitis of unspecified part of limb (2) Drug induced rash with eosinophilia and systemic symptoms Impression: Likely related to clindamycin. Eosinophils 1.2 on CBC. She received epinephrine, diphenhydramine, famotidine and certizine in the ER. She is breathing comfortably on room air. Maculopapular rash is diffuse on her body. Clindamycin was discontinued on Tuesday10/21/2018. Her eosinphils are 0.1 today. Rash is non-pruritic. Plan: continue supportive care continue hydroxyzine PRN continue famotidine and certizine (3) Depression Impression: stable Plan: continue home antidepressants (4) Chronic pain Impression: At baseline. Plan: continue gabapentin and PRN hydrocodone monitor for somnolence Qualifiers: Chronic pain type: chronic pain syndrome Qualified Code(s): G89.4 - Chronic pain syndrome (5) Dementia Impression: At baseline. Able to give history and answer questions appropriately. Plan: continue home medications, aricept and namenda Qualifiers: Dementia type: Alzheimer's disease (6) Morbid obesity Impression: BMI 41 kg/m2. Plan: lifestyle modifications (7) Hypokalemia, resolved K 3.7 (8) Hyponatremia, resolved Na 137 Qualifiers: Laterality: unspecified laterality Qualified Code(s): L03.119 - Cellulitis of unspecified part of limb
[2018-10-25] MEDS ORDERED: VANCOMYCIN INJ 1 GM in SODIUM CHLORIDE 0.9% 250 ML IV SCH (18:00)
[2018-10-26] MEDS: SODIUM CHLORIDE FLUSH 0.9% 10 ML SYRINGE IVP SCH ×4 (00:42→16:29)
[2018-10-26] MEDS: ACETAMINOPHEN 325 MG TABLET PO PRN (03:48)
[2018-10-26 04:50] LABS: BASOPHILS % (AUTO) 0.2 %; EOSINOPHILS # (AUTO) 1.8 10^3/uL (0.0-0.7); EOSINOPHILS % (AUTO) 12.6 %; LYMPHOCYTES # (AUTO) 2.4 10^3/uL (1.5-3.5); LYMPHOCYTES % (AUTO) 17.1 %; MEAN CORPUSCULAR HEMOGLOBIN 31.3 pg (27.0-31.0); MEAN CORPUSCULAR VOLUME 92.2 fL (81.0-99.0); MEAN PLATELET VOLUME 6.8 fL (7.9-10.8); MONOCYTES % (AUTO) 6.7 %; NEUTROPHILS # (AUTO) 9.1 10^3/uL (1.5-6.6); NEUTROPHILS % (AUTO) 63.4 %; PLT - PLATELET COUNT 439 10^3/uL (130-450); RED BLOOD COUNT 3.52 10^6/uL (4.20-5.40); WHITE BLOOD COUNT 14.3 x10^3/uL (4.8-10.8)
[2018-10-26 04:59] LABS: CALCIUM 7.9 mg/dL (8.5-10.3); CREATININE 0.8 mg/dL (0.4-1.0); CRP - C-REACTIVE PROTEIN 1.1 mg/dL (0-1.0)
[2018-10-26] MEDS ORDERED: hydrALAZINE INJ 20 MG/ML VIAL IVP ONE (06:14)
[2018-10-26] MEDS: SODIUM CHLORIDE FLUSH 0.9% 10 ML SYRINGE IVP PRN ×5 (06:37→23:28)
[2018-10-26 06:58] LABS: DIFFERENTIAL COMMENT MANUAL=AUTO DIFF; PLATELET ESTIMATE, MANUAL NORMAL (130-450,000) (NORMAL); RBC MORPHOLOGY (MULTIPLE) NORMAL APPEARANCE (NORMAL)
[2018-10-26] MEDS: GABAPENTIN 300 MG CAPSULE PO SCH (08:25)
[2018-10-26] MEDS: DONEPEZIL 5 MG TABLET PO SCH (08:25)
[2018-10-26] MEDS: oxyCODONE 5 MG TABLET PO PRN (08:26)
[2018-10-26] MEDS: MEMANTINE 5 MG TABLET PO SCH (08:27)
[2018-10-26] MEDS: DULoxetine 20 MG CAPSULE PO SCH (08:28)
[2018-10-26] MEDS: CETIRIZINE 10 MG TABLET PO SCH (08:28)
[2018-10-26] MEDS: LEVOTHYROXINE 100 MCG TABLET PO SCH (08:28)
[2018-10-26] MEDS: FAMOTIDINE 20 MG TABLET PO SCH (08:29)
[2018-10-26] MEDS: ASPIRIN EC 81 MG TABLET PO SCH (08:29)
[2018-10-26] MEDS: LACTOBACILLUS RHAMNOSUS GG CAPSULE PO SCH (08:29)
[2018-10-26] MEDS: MONTELUKAST 10 MG TABLET PO SCH (08:29)
[2018-10-26] MEDS: CEFEPIME 2 GM in SODIUM CHLORIDE 0.9% MINIBAG 100 ML IV SCH ×2 (08:30→20:48)
[2018-10-26] MEDS: FLUoxetine 10 MG CAPSULE PO SCH (08:34)
[2018-10-26] MEDS: ENOXAPARIN 30 MG/0.3 ML SYRINGE SUBQ SCH (08:35)
[2018-10-26] MEDS: POLYETHYLENE GLYCOL 3350 17 GM PACKET PO SCH (08:36)
[2018-10-26] MEDS ORDERED: ONDANSETRON 4 MG/2 ML VIAL IVP PRN (09:17)
[2018-10-26] MEDS: VANCOMYCIN INJ 0.75 GM in SODIUM CHLORIDE 0.9% 250 ML IV SCH (16:31)
--- NOTE | 2018-10-26 17:12 | PROVIDER PROGRESS NOTE ---
Subjective - Prog Note Date Prog Note Date: 10/26/18 Prog Note Time: 09:00 - Subjective Pt reports feeling: No change Subjective: Eliana asks me to "get my caregiver", and did not understand she was in the hospital. She denies hallucinations, shortness of breath, vomiting, or diarrhea, but has ongoing nausea. Current Medications - Current Medications Current Medications: Active Medications: Acetaminophen (Tylenol) 650 mg PO Q4HR PRN Aspirin (Ecotrin) 81 mg PO DAILY WONG Duloxetine HCl (Cymbalta) 10 mg PO DAILY WONG Enoxaparin Sodium (Lovenox) 30 mg SUBQ DAILY WONG Famotidine (Pepcid) 20 mg PO DAILY WONG Fluoxetine HCl (Prozac) 20 mg PO DAILY WONG Gabapentin (Neurontin) 300 mg PO QPM WONG Hydralazine HCl (Apresoline Inj) 10 mg IVP Q4H PRN Hydralazine HCl (Apresoline) 10 mg PO Q6H WONG Cefepime HCl 2 gm/ Sodium (Chloride) 100 mls @ 200 mls/hr IV BID WONG Vancomycin HCl 0.75 gm/ Sodium (Chloride) 250 mls @ 167 mls/hr IV Q12H WONG Lactobacillus Rhamnosus (Culturelle) 1 cap PO DAILY WONG Levothyroxine Sodium (Synthroid) 100 mcg PO DAILY WONG Methylprednisolone (Solu-Medrol (40mg Vial)) 40 mg IVP BID WONG Ondansetron HCl (Zofran Inj) 4 mg IVP Q4HR PRN Oxycodone HCl (Roxicodone) 5 mg PO Q6H PRN Polyethylene Glycol (Miralax) 17 gm PO DAILY WONG Trazodone HCl (Desyrel) 50 mg PO QPM PRN HOME meds: Ascorbic Acid [Vitamin C] 1 tab PO BID 06/03/17 Flaxseed Oil 1 tab PO TID 06/03/17 Fluoxetine HCl 40 mg PO BID 06/03/17 Gabapentin 300 mg PO BID 06/03/17 Hydrocodone/Acetaminophen [Hydrocodone-Acetamin 7.5-325] 1 tab PO Q6H PRN 06/03/17 Loperamide HCl [Loperamide] 1 tab PO DAILY 06/03/17 Montelukast [Singulair] 10 mg PO DAILY 06/03/17 [place]-3/Dha/Epa/Fish Oil [Fish Oil 1,000 mg Softgel] 1 tab PO TID 06/03/17 Omeprazole 20 mg PO DAILY 06/03/17 Simvastatin [Zocor] 20 mg PO DAILY 06/03/17 Aspirin [Adult Low Dose Aspirin EC] 81 mg PO DAILY 03/01/18 Cholecalciferol (Vitamin D3) [Vitamin D3] 1,000 unit PO DAILY 03/01/18 Cranberry 1 cap PO DAILY 03/01/18 Donepezil [Aricept] 5 mg PO DAILY 03/01/18 Multivitamin [Multivitamins] 1 cap PO DAILY 03/01/18 Vitamin E (Dl,Tocopheryl Acet) [Vitamin E] 1 cap PO DAILY 03/01/18 Duloxetine HCl 20 mg PO DAILY 10/16/18 Levothyroxine Sodium 100 mcg PO DAILY 10/16/18 Memantine HCl 10 mg PO BID 10/16/18 Spironolactone 25 mg PO DAILY 10/16/18 Objective - Vital Signs/Intake & Output Reviewed Vital Signs: Yes Vital Signs: Vital Signs x48h Temp Pulse Resp BP BP Pulse Ox 10/26/18 15:32 37.2 C 88 20 175/71 H 92 10/26/18 11:41 37.2 C 94 20 153/61 H 92 Intake & Output: Intake & Output 10/23/18 10/24/18 10/25/18 10/26/18 23:59 23:59 23:59 23:59 Intake Total 1360 4330.00 1230 Output Total 700 1250 1050 Balance 660 3080.00 180 - Objective General Appearance: positive: Alert, Mild distress, Anxious Eyes Bilateral: positive: PERRL Eyes: OU Scleral icterus (mild) ENT: positive: Pharyngeal erythema, Dry mucous membranes Neck: positive: No JVD, Lymphadenopathy (R), Lymphadenopathy (L), Stiff neck Respiratory: positive: Chest non-tender, No respiratory distress, Wheezes, Rhonchi Cardiovascular: positive: Regular rate & rhythm, Systolic murmur, Decreased pulse(s) Peripheral Pulses: 1+ Radial (R), 1+ Radial (L) Abdomen: positive: Non-tender, Nml bowel sounds, Hepatomegaly Back: positive: Nml inspection Skin: positive: No rash, Warm, Dry, Pallor Extremities: positive: Non-tender, Pedal edema, Joint swelling Neurologic/Psychiatric: positive: CN's nml (2-12), Disoriented to time, Weakness, Sensory loss, Slurred/abnml speech, Depressed mood/affect Reflexes: Bicep (R): 3+, Bicep (L): 3+ - Lab Results Fish Bones: 10/26/18 04:15 10/26/18 04:15 Other Labs: Lab Results x24hrs 10/26/18 10/26/18 Range/Units 04:15 04:15 WBC 14.3 H (4.8-10.8) x10^3/uL RBC 3.52 L (4.20-5.40) 10^6/uL Hgb 11.0 L (12.0-16.0) g/dL Hct 32.5 L (37.0-47.0) % MCV 92.2 (81.0-99.0) fL MCH 31.3 H (27.0-31.0) pg MCHC 34.0 (32.0-36.0) g/dL RDW 13.0 (12.0-15.0) % Plt Count 439 (130-450) 10^3/uL MPV 6.8 L (7.9-10.8) fL Neut # (Auto) 9.1 H (1.5-6.6) 10^3/uL Lymph # (Auto) 2.4 (1.5-3.5) 10^3/uL [place] # (Auto) 1.0 (0.0-1.0) 10^3/uL Eos # (Auto) 1.8 H (0.0-0.7) 10^3/uL Baso # (Auto) 0.0 (0.0-0.1) 10^3/uL Absolute Nucleated RBC 0.00 x10^3/uL Band Neuts % (Manual) Not Reportable Abnorm Lymph % (Manual) Not Reportable Nucleated RBC % 0.0 /100WBC Neutrophils # (Manual) Not Reportable Lymphocytes # (Manual) Not Reportable Monocytes # (Manual) Not Reportable Eosinophils # (Manual) Not Reportable Basophils # (Manual) Not Reportable Differential Comment MANUAL=AUTO DIFF Platelet Estimate NORMAL (130-450,000) (NORMAL) RBC Morph Micro Appear NORMAL APPEARANCE (NORMAL) Sodium 136 (135-145) mmol/L Potassium 3.3 L (3.5-5.0) mmol/L Chloride 102 (101-111) mmol/L Carbon Dioxide 27 (21-32) mmol/L Anion Gap 7.0 (6-13) BUN 15 (6-20) mg/dL Creatinine 0.8 (0.4-1.0) mg/dL Estimated GFR (MDRD) 69 L (>89) Glucose 99 (70-100) mg/dL Calcium 7.9 L (8.5-10.3) mg/dL C-Reactive Protein 1.1 H (0-1.0) mg/dL ABX Reporting Has patient been on IV antibiotics over the past 48 hours?: Yes Sepsis Event Note (H) - Evaluation Current Stage of Sepsis: Ruled out Assessment/Plan - Problem List (1) Acute encephalopathy Impression: The patient is having poor memory on exam today She has a polypharmacy of drugs at home Plan: Hold some home meds, reduce doses of others, monitor for improvement (2) Allergic reaction Impression: Diffuse rash all over torso, extremities and face Plan: Start low dose steroids Qualifiers: Encounter type: initial encounter Qualified Code(s): T78.40XA - Allergy, unspecified, initial encounter (3) Cellulitis, leg Impression: Failed outpatient treatment, then had a reaction to clindamycin Continue vanco/cefepime Ask nursing to take photos for the chart Qualifiers: Laterality: unspecified laterality Qualified Code(s): L03.119 - Cellulitis of unspecified part of limb (4) Depression Impression: Cymbalta and prozac were both at the highest dosing, now reduced Plan: Monitor mood Qualifiers: Depression Type: major depressive disorder (5) Polypharmacy Impression: The patient has been on Aricept, namenda, Cymbalta, Prozac, gabapentin which are the most likely culprits of her falls at home Now discontinued or reduced dose Plan: Continue to wean off other dangerous meds that create an unsafe situation/cause falls (6) Hypertension Impression: B/P today with systolics 170 Holding diuretics in light of acute infection Start Hydralazine PO Q6H Qualifiers: Hypertension type: essential hypertension Qualified Code(s): I10 - Essential (primary) hypertension
[2018-10-26] MEDS: hydrALAZINE 10 MG TABLET PO SCH (17:54)
[2018-10-26] MEDS: methylPREDNISolone SUCCINATE 40 MG/ML VIAL IVP SCH ×2 (18:25→21:54)
[2018-10-26] MEDS: hydrALAZINE INJ 20 MG/ML VIAL IVP PRN (22:03)
[2018-10-26] MEDS ORDERED: LABETALOL 20 MG/4 ML SYRINGE IVP ONE (22:56)
[2018-10-27] MEDS: hydrALAZINE 10 MG TABLET PO SCH ×4 (00:56→18:36)
[2018-10-27] MEDS ORDERED: METOPROLOL 5 MG/5 ML VIAL IVP SCH (01:00)
[2018-10-27] MEDS: SODIUM CHLORIDE FLUSH 0.9% 10 ML SYRINGE IVP SCH ×4 (01:04→18:56)
[2018-10-27 03:03] LABS: BASOPHILS % (AUTO) 0.3 %; EOSINOPHILS % (AUTO) 0.7 %; HGB - HEMOGLOBIN 12.6 g/dL (12.0-16.0); LYMPHOCYTES % (AUTO) 8.5 %; MEAN CORPUSCULAR HEMOGLOBIN 31.4 pg (27.0-31.0); MEAN CORPUSCULAR HGB CONC 33.7 g/dL (32.0-36.0); MEAN CORPUSCULAR VOLUME 93.4 fL (81.0-99.0); MEAN PLATELET VOLUME 6.8 fL (7.9-10.8); MONOCYTES % (AUTO) 3.2 %; NEUTROPHILS % (AUTO) 87.3 %; PLT - PLATELET COUNT 540 10^3/uL (130-450); RED BLOOD COUNT 4.02 10^6/uL (4.20-5.40); RED CELL DISTRIBUTION WIDTH 13.3 % (12.0-15.0); WHITE BLOOD COUNT 18.1 x10^3/uL (4.8-10.8)
[2018-10-27 03:06] LABS: CALCIUM 8.3 mg/dL (8.5-10.3); CREATININE 0.7 mg/dL (0.4-1.0)
[2018-10-27] MEDS ORDERED: POTASSIUM CHLOR 10 MEQ/100 ML 10 MEQ/100 ML BAG IV ONE (03:17)
[2018-10-27] MEDS ORDERED: IOVERSOL 320 100 ML VIAL IVP ONE ×2 (03:18→04:00)
[2018-10-27 03:42] LABS: ABNORMAL LYMPHS % (MANUAL) 1 %; BAND NEUTROPHILS % (MANUAL) 2 %; EOSINOPHILS # (MANUAL) 0.2 10^3/uL (0-0.7); LYMPHOCYTES # (MANUAL) 2.2 10^3/uL (1.5-3.5); LYMPHOCYTES % (MANUAL) 11 %; MONOCYTES # (MANUAL) 0.2 10^3/uL (0.0-1.0); MYELOCYTES % (MANUAL) 3 %; NEUTROPHILS % (MANUAL) 81 %
[2018-10-27 03:43] LABS: PLATELET ESTIMATE, MANUAL INCREASED (>450,000) (NORMAL); RBC MORPHOLOGY (MULTIPLE) 1+ HYPOCHROMASIA (NORMAL)
[2018-10-27] MEDS ORDERED: diltiaZEM INJ 5 MG/ML VIAL IVP ONE (04:13)
--- NOTE | 2018-10-27 04:23 | CT Report ---
Reason: dyspnea, diaphoretic new afib Procedure Date: 10/27/2018 Accession Number: [id number] / [id number] Procedure: CT - Chest Angio (PE) CPT Code: FULL RESULT: EXAM: CT ANGIOGRAM CHEST EXAM DATE: 10/27/2018 03:56 AM. CLINICAL HISTORY: Dyspnea, diaphoretic new afib. COMPARISON: None. TECHNIQUE: Routine helical imaging was performed through the chest in the pulmonary arterial phase. IV Contrast: 70ML OPTIRAY 320. Reconstructions: Coronal 3-D MIP reconstructions.Sagittal and coronal. In accordance with CT protocol optimization, one or more of the following dose reduction techniques were utilized for this exam: automated exposure control, adjustment of mA and/or KV based on patient size, or use of iterative reconstructive technique. FINDINGS: Pulmonary Arteries: Diagnostic quality: Adequate through the segmental arteries. No evidence for acute or chronic pulmonary emboli. RV/LV is within normal limits. There is no interventricular septal bowing. There is no reflux of contrast material in the IVC. Lungs/Pleura: There is very mild interstitial infiltration and very subtle, minimal patchy infiltrative changes within the lungs. Findings may be related to slight fluid overload. There are small pleural effusions. Mediastinum: The heart is enlarged and there are prominent atherosclerotic vascular calcifications of the coronary arteries. There is calcification of the mitral valve annulus. Thoracic Aorta: Unremarkable. Upper Abdomen: Unremarkable. Other: None. IMPRESSION: 1 . No evidence for pulmonary emboli. 2. Findings supportive of early interstitial edema. 3. Small pleural effusions. 4. Cardiomegaly and extensive atherosclerotic vascular calcifications of the coronary arteries. RADIA
[2018-10-27] MEDS ORDERED: FUROSEMIDE 20 MG/2 ML VIAL IVP SCH (04:29)
[2018-10-27] MEDS ORDERED: POTASSIUM CHLOR 10 MEQ/100 ML 10 MEQ/100 ML BAG IV SCH ×3 (04:30→06:30)
[2018-10-27] MEDS ORDERED: METOPROLOL 5 MG/5 ML VIAL IVP STA (04:40)
[2018-10-27] MEDS ORDERED: NITROGLYCERIN 2% PASTE TOP SCH (05:00)
[2018-10-27] MEDS ORDERED: FUROSEMIDE 20 MG/2 ML VIAL IVP STA (05:09)
[2018-10-27] MEDS: VANCOMYCIN INJ 0.75 GM in SODIUM CHLORIDE 0.9% 250 ML IV SCH ×2 (05:10→16:24)
[2018-10-27] MEDS: SODIUM CHLORIDE FLUSH 0.9% 10 ML SYRINGE IVP PRN (05:22)
[2018-10-27] MEDS ORDERED: NITROGLYCERIN 2% PASTE TOP STA (05:42)
--- NOTE | 2018-10-27 06:08 | PROVIDER PROGRESS NOTE ---
Communications Manager Note - Communications Manager Note Communications Manager Note: Patient was tachycardic around midnight. A 12 lead EKG showed atrial fibrillation with RVR. Her rates were as high as the 130'5. Her systolic blood pressure ranged between 170's and 190's. She was initially given hydralazine 10mg IV. When there was no significant change in her BP and she was found to be in atrial fibrillation she was given 5mg IV of metoprolol. Shortly after this she became very dyspneic requiring 3L of oxygen to maintain her O2Sats above 90%. She was also diaphoretic and still in atrial fibrillation with RVR. Work up included CBC, BMP, BNP, Trop, TSH, Mg, CT Angio for PE Here BNP was 1400, Trop was 0.08. CT Angio Chest was negative for PE but showed interstitial edema. Echo done 10/2018 showed a normal EF Diltiazem was ordered for the atrial fibrillation but the patient converted to normal sinus rhythm just before it could be administered. However her SBP remained in the 190's so she was given another 5mg IV of metoprolol. She also had a total of 40mg IV lasix given. A total of 1inch nitropaste has been applied. Since her SBP is still very elevated, my next plan is to place her on a nitroglycerin drip in the ICU and on bipap for pulmonary edema She still has essential fluids being administered. 4 (10 mEq potassium chloride) riders for a potassium level of 2.9. Especially in light of haven received lasix. She also has vancomycin due to be administered. (Her WBC this morning was more elevated at 18)
[2018-10-27] MEDS ORDERED: hydrALAZINE INJ 20 MG/ML VIAL IVP ONE (06:25)
[2018-10-27] MEDS ORDERED: SODIUM CHLORIDE FLUSH 0.9% 10 ML SYRINGE ONE (06:31)
[2018-10-27] MEDS: hydrALAZINE INJ 20 MG/ML VIAL IVP PRN (06:32)
[2018-10-27] MEDS: ASPIRIN EC 81 MG TABLET PO SCH (08:36)
[2018-10-27] MEDS: FAMOTIDINE 20 MG TABLET PO SCH (08:36)
[2018-10-27] MEDS: FLUoxetine 10 MG CAPSULE PO SCH (08:36)
[2018-10-27] MEDS: LEVOTHYROXINE 100 MCG TABLET PO SCH (08:36)
[2018-10-27] MEDS: LACTOBACILLUS RHAMNOSUS GG CAPSULE PO SCH (08:37)
[2018-10-27] MEDS: ENOXAPARIN 30 MG/0.3 ML SYRINGE SUBQ SCH (08:37)
[2018-10-27] MEDS: CEFEPIME 2 GM in SODIUM CHLORIDE 0.9% MINIBAG 100 ML IV SCH ×2 (08:37→20:55)
[2018-10-27] MEDS: POLYETHYLENE GLYCOL 3350 17 GM PACKET PO SCH (08:38)
[2018-10-27] MEDS: methylPREDNISolone SUCCINATE 40 MG/ML VIAL IVP SCH (08:38)
[2018-10-27] MEDS ORDERED: DULoxetine 20 MG CAPSULE PO SCH (09:00)
[2018-10-27] MEDS ORDERED: FLUoxetine 10 MG CAPSULE PO SCH (09:00)
[2018-10-27] MEDS ORDERED: POTASSIUM CHLORIDE 20 MEQ TABLET PO ONE (16:17)
[2018-10-27] MEDS ORDERED: diphenhydrAMINE INJ 50 MG/ML VIAL IVP PRN (16:18)
[2018-10-27] MEDS ORDERED: CARVEDILOL 3.125 MG TABLET PO SCH (17:00)
--- NOTE | 2018-10-27 19:12 | PROVIDER PROGRESS NOTE ---
Subjective - Prog Note Date Prog Note Date: 10/27/18 Prog Note Time: 09:00 - Subjective Pt reports feeling: No change Subjective: Eliana is agreeable to staying to ensure a full recovery this time from her cellulitis. She denies chest pain, nausea, vomiting, diarrhea, worsening body rash or new shortness of breath. Objective - Vital Signs/Intake & Output Reviewed Vital Signs: Yes Vital Signs: Vital Signs x48h Temp Pulse Resp BP Pulse Ox 10/27/18 18:57 37 C 77 22 182/66 H 96 10/27/18 15:18 36.9 C 83 24 171/74 H 95 10/27/18 13:00 36.8 C 78 18 160/70 H 96 Intake & Output: Intake & Output 10/24/18 10/25/18 10/26/18 10/27/18 23:59 23:59 23:59 23:59 Intake Total 1360 4330.00 2120 1100 Output Total 700 1250 1850 2000 Balance 660 3080.00 270 -900 - Objective General Appearance: positive: Alert, Moderate distress, Anxious Eyes Bilateral: positive: PERRL Eyes: OU Conjunctivae pale ENT: positive: Pharynx nml, Dry mucous membranes Neck: positive: Thyroid nml, No JVD, Trachea midline Respiratory: positive: Chest non-tender, No respiratory distress, Other (diminished) Cardiovascular: positive: No gallop, Irregularly irregular, Systolic murmur, Decreased pulse(s) Peripheral Pulses: 1+ Radial (R), 1+ Radial (L), 1+ Dorsalis pedis (R), 1+ Dorsa lis pedis (L) Abdomen: positive: Non-tender, Nml bowel sounds Back: positive: Nml inspection Skin: positive: No rash, Warm, Dry Extremities: positive: Non-tender, Pedal edema, Joint swelling Neurologic/Psychiatric: positive: Disoriented to place, Disoriented to time, Weakness, Sensory loss, Slurred/abnml speech, Depressed mood/affect Reflexes: Bicep (R): 3+, Bicep (L): 3+ - Lab Results Fish Bones: 10/28/18 06:19 10/28/18 06:19 Other Labs: Lab Results x24hrs 10/27/18 10/27/18 10/27/18 Range/Units 14:30 14:30 08:38 WBC (4.8-10.8) x10^3/uL RBC (4.20-5.40) 10^6/uL Hgb (12.0-16.0) g/dL Hct (37.0-47.0) % MCV (81.0-99.0) fL MCH (27.0-31.0) pg MCHC (32.0-36.0) g/dL RDW (12.0-15.0) % Plt Count (130-450) 10^3/uL MPV (7.9-10.8) fL Neut # (Auto) Lymph # (Auto) [place] # (Auto) Eos # (Auto) Baso # (Auto) Absolute Nucleated RBC Total Counted Band Neuts % (Manual) (0 - 10) % Abnorm Lymph % (Manual) % Myelocytes % ( - 0) % Nucleated RBC % Neutrophils # (Manual) (1.5-6.6) 10^3/uL Lymphocytes # (Manual) (1.5-3.5) 10^3/uL Monocytes # (Manual) (0.0-1.0) 10^3/uL Eosinophils # (Manual) (0-0.7) 10^3/uL Basophils # (Manual) (0-0.1) 10^3/uL Platelet Estimate (NORMAL) RBC Morph Micro Appear (NORMAL) Sodium (135-145) mmol/L Potassium 3.1 L (3.5-5.0) mmol/L Chloride (101-111) mmol/L Carbon Dioxide (21-32) mmol/L Anion Gap (6-13) BUN (6-20) mg/dL Creatinine (0.4-1.0) mg/dL Estimated GFR (MDRD) (>89) Glucose (70-100) mg/dL Lactic Acid (0.5-2.2) mmol/L Calcium (8.5-10.3) mg/dL Magnesium (1.7-2.8) mg/dL Troponin I 0.21 0.21 (<0.49) ng/mL B-Natriuretic Peptide (5-100) pg/mL TSH (0.34-5.60) uIU/mL 10/27/18 10/27/18 10/27/18 Range/Units 07:55 05:45 02:45 WBC (4.8-10.8) x10^3/uL RBC (4.20-5.40) 10^6/uL Hgb (12.0-16.0) g/dL Hct (37.0-47.0) % MCV (81.0-99.0) fL MCH (27.0-31.0) pg MCHC (32.0-36.0) g/dL RDW (12.0-15.0) % Plt Count (130-450) 10^3/uL MPV (7.9-10.8) fL Neut # (Auto) Lymph # (Auto) [place] # (Auto) Eos # (Auto) Baso # (Auto) Absolute Nucleated RBC Total Counted Band Neuts % (Manual) (0 - 10) % Abnorm Lymph % (Manual) % Myelocytes % ( - 0) % Nucleated RBC % Neutrophils # (Manual) (1.5-6.6) 10^3/uL Lymphocytes # (Manual) (1.5-3.5) 10^3/uL Monocytes # (Manual) (0.0-1.0) 10^3/uL Eosinophils # (Manual) (0-0.7) 10^3/uL Basophils # (Manual) (0-0.1) 10^3/uL Platelet Estimate (NORMAL) RBC Morph Micro Appear (NORMAL) Sodium (135-145) mmol/L Potassium (3.5-5.0) mmol/L Chloride (101-111) mmol/L Carbon Dioxide (21-32) mmol/L Anion Gap (6-13) BUN (6-20) mg/dL Creatinine (0.4-1.0) mg/dL Estimated GFR (MDRD) (>89) Glucose (70-100) mg/dL Lactic Acid 0.9 1.1 (0.5-2.2) mmol/L Calcium (8.5-10.3) mg/dL Magnesium 1.9 (1.7-2.8) mg/dL Troponin I (<0.49) ng/mL B-Natriuretic Peptide (5-100) pg/mL TSH (0.34-5.60) uIU/mL 10/27/18 10/27/18 10/27/18 Range/Units 02:45 02:45 02:45 WBC 18.1 H (4.8-10.8) x10^3/uL RBC 4.02 L (4.20-5.40) 10^6/uL Hgb 12.6 (12.0-16.0) g/dL Hct 37.5 (37.0-47.0) % MCV 93.4 (81.0-99.0) fL MCH 31.4 H (27.0-31.0) pg MCHC 33.7 (32.0-36.0) g/dL RDW 13.3 (12.0-15.0) % Plt Count 540 H (130-450) 10^3/uL MPV 6.8 L (7.9-10.8) fL Neut # (Auto) Not Reportable Lymph # (Auto) Not Reportable [place] # (Auto) Not Reportable Eos # (Auto) Not Reportable Baso # (Auto) Not Reportable Absolute Nucleated RBC Not Reportable Total Counted 100 Band Neuts % (Manual) 2 (0 - 10) % Abnorm Lymph % (Manual) 1 % Myelocytes % 3 H ( - 0) % Nucleated RBC % Not Reportable Neutrophils # (Manual) 15.0 H (1.5-6.6) 10^3/uL Lymphocytes # (Manual) 2.2 (1.5-3.5) 10^3/uL Monocytes # (Manual) 0.2 (0.0-1.0) 10^3/uL Eosinophils # (Manual) 0.2 (0-0.7) 10^3/uL Basophils # (Manual) 0.0 (0-0.1) 10^3/uL Platelet Estimate INCREASED (>450,000) (NORMAL) RBC Morph Micro Appear 1+ HYPOCHROMASIA (NORMAL) Sodium 138 (135-145) mmol/L Potassium 2.9 L (3.5-5.0) mmol/L Chloride 98 L (101-111) mmol/L Carbon Dioxide 26 (21-32) mmol/L Anion Gap 14.0 H (6-13) BUN 13 (6-20) mg/dL Creatinine 0.7 (0.4-1.0) mg/dL Estimated GFR (MDRD) 81 L (>89) Glucose 202 H (70-100) mg/dL Lactic Acid (0.5-2.2) mmol/L Calcium 8.3 L (8.5-10.3) mg/dL Magnesium (1.7-2.8) mg/dL Troponin I (<0.49) ng/mL B-Natriuretic Peptide 1435 H (5-100) pg/mL TSH (0.34-5.60) uIU/mL 10/27/18 10/27/18 Range/Units 02:45 02:45 WBC (4.8-10.8) x10^3/uL RBC (4.20-5.40) 10^6/uL Hgb (12.0-16.0) g/dL Hct (37.0-47.0) % MCV (81.0-99.0) fL MCH (27.0-31.0) pg MCHC (32.0-36.0) g/dL RDW (12.0-15.0) % Plt Count (130-450) 10^3/uL MPV (7.9-10.8) fL Neut # (Auto) Lymph # (Auto) [place] # (Auto) Eos # (Auto) Baso # (Auto) Absolute Nucleated RBC Total Counted Band Neuts % (Manual) (0 - 10) % Abnorm Lymph % (Manual) % Myelocytes % ( - 0) % Nucleated RBC % Neutrophils # (Manual) (1.5-6.6) 10^3/uL Lymphocytes # (Manual) (1.5-3.5) 10^3/uL Monocytes # (Manual) (0.0-1.0) 10^3/uL Eosinophils # (Manual) (0-0.7) 10^3/uL Basophils # (Manual) (0-0.1) 10^3/uL Platelet Estimate (NORMAL) RBC Morph Micro Appear (NORMAL) Sodium (135-145) mmol/L Potassium (3.5-5.0) mmol/L Chloride (101-111) mmol/L Carbon Dioxide (21-32) mmol/L Anion Gap (6-13) BUN (6-20) mg/dL Creatinine (0.4-1.0) mg/dL Estimated GFR (MDRD) (>89) Glucose (70-100) mg/dL Lactic Acid (0.5-2.2) mmol/L Calcium (8.5-10.3) mg/dL Magnesium (1.7-2.8) mg/dL Troponin I 0.08 (<0.49) ng/mL B-Natriuretic Peptide (5-100) pg/mL TSH 1.39 (0.34-5.60) uIU/mL ABX Reporting Has patient been on IV antibiotics over the past 48 hours?: Yes Sepsis Event Note (H) - Evaluation Current Stage of Sepsis: Ruled out Assessment/Plan - Problem List (1) Acute encephalopathy Impression: The patient is having poor memory on exam today She has a polypharmacy of drugs at home Plan: Hold some home meds, reduce doses of others, monitor for improvement (2) Allergic reaction Impression: Diffuse rash all over torso, extremities and face. This continues, along with increased agitation, so IV benadryl was started. She has elevated troponins, so steroids are contraindicated. Plan: Stop steroids, continue with IV benadryl and watch for improvement. Qualifiers: Encounter type: initial encounter Qualified Code(s): T78.40XA - Allergy, unspecified, initial encounter (3) Cellulitis, leg Impression: Failed outpatient treatment, then had a reaction to clindamycin Continued vanco/cefepime, with improvement noted today. Qualifiers: Laterality: unspecified laterality Qualified Code(s): L03.119 - Cellulitis of unspecified part of limb (4) Depression Impression: Cymbalta and prozac were both at the highest dosing, now reduced and titrated off upon discharge. Plan: Monitor mood Qualifiers: Depression Type: major depressive disorder (5) Polypharmacy Impression: The patient has been on Aricept, namenda, Cymbalta, Prozac, gabapentin which are the most likely culprits of her falls at home Now discontinued or reduced dose Plan: Continue to wean off other dangerous meds that create an unsafe situation/cause falls (6) Hypertension Impression: B/P today with systolics 150's, Spironolactone was resumed. Plan: Continue Hydralazine PO Q6H, PRN Qualifiers: Hypertension type: essential hypertension Qualified Code(s): I10 - Essential (primary) hypertension (7) Morbid obesity Impression: The patient has a BMI charted as 39, which matches her exam. Plan: Suggest weight management, ordered by PCP.
[2018-10-27] MEDS: diphenhydrAMINE INJ 50 MG/ML VIAL IVP SCH (20:55)
[2018-10-27] MEDS: NITROGLYCERIN 2% PASTE TOP SCH (20:56)
[2018-10-27] MEDS: SPIRONOLACTONE 25 MG TABLET PO SCH (20:57)
[2018-10-27] MEDS: METOPROLOL SUCCINATE 50 MG TABLET PO SCH (20:58)
[2018-10-27] MEDS ORDERED: GABAPENTIN 300 MG CAPSULE PO SCH (21:00)
[2018-10-28] MEDS: hydrALAZINE 10 MG TABLET PO SCH ×2 (00:09→05:42)
[2018-10-28] MEDS: SODIUM CHLORIDE FLUSH 0.9% 10 ML SYRINGE IVP SCH ×2 (00:09→02:30)
[2018-10-28] MEDS: diphenhydrAMINE INJ 50 MG/ML VIAL IVP SCH ×2 (02:29→09:19)
[2018-10-28] MEDS: NITROGLYCERIN 2% PASTE TOP SCH ×2 (02:30→09:19)
[2018-10-28] MEDS: oxyCODONE 5 MG TABLET PO PRN (05:50)
[2018-10-28 06:27] LABS: BASOPHILS % (AUTO) 0.4 %; EOSINOPHILS % (AUTO) 3.3 %; HGB - HEMOGLOBIN 10.9 g/dL (12.0-16.0); LYMPHOCYTES % (AUTO) 14.2 %; MEAN CORPUSCULAR HEMOGLOBIN 30.7 pg (27.0-31.0); MEAN CORPUSCULAR VOLUME 93.1 fL (81.0-99.0); MEAN PLATELET VOLUME 6.5 fL (7.9-10.8); MONOCYTES % (AUTO) 6.8 %; NEUTROPHILS % (AUTO) 75.3 %; PLT - PLATELET COUNT 466 10^3/uL (130-450); RED BLOOD COUNT 3.54 10^6/uL (4.20-5.40); RED CELL DISTRIBUTION WIDTH 13.5 % (12.0-15.0); WHITE BLOOD COUNT 20.9 x10^3/uL (4.8-10.8)
[2018-10-28 06:46] LABS: ALBUMIN 2.8 g/dL (3.2-5.5); ALBUMIN/GLOBULIN RATIO 0.8 (1.0-2.2); BILIRUBIN,TOTAL 0.6 mg/dL (0.2-1.0); CALCIUM 8.2 mg/dL (8.5-10.3); CREATININE 0.7 mg/dL (0.4-1.0); CRP - C-REACTIVE PROTEIN 4.5 mg/dL (0-1.0); MAGNESIUM 1.8 mg/dL (1.7-2.8); PHOSPHORUS 2.8 mg/dL (2.5-4.6); TOTAL PROTEIN 6.5 g/dL (6.7-8.2)
[2018-10-28 06:53] LABS: ABNORMAL LYMPHS % (MANUAL) 0 %; BAND NEUTROPHILS % (MANUAL) 0 %
[2018-10-28 07:20] LABS: VANCOMYCIN,TROUGH 16.9 ug/mL (10.0-20.0)
[2018-10-28 07:37] LABS: EOSINOPHILS # (MANUAL) 1.3 10^3/uL (0-0.7); LYMPHOCYTES # (MANUAL) 2.5 10^3/uL (1.5-3.5); LYMPHOCYTES % (MANUAL) 12 %; MONOCYTES # (MANUAL) 1.3 10^3/uL (0.0-1.0); NEUTROPHILS # (MANUAL) 15.9 10^3/uL (1.5-6.6); NEUTROPHILS % (MANUAL) 76 %
[2018-10-28 07:41] LABS: DIFFERENTIAL COMMENT MANUAL DIFFERENTIAL; PLATELET ESTIMATE, MANUAL INCREASED (>450,000) (NORMAL)
[2018-10-28] MEDS ORDERED: VANCOMYCIN INJ 0.75 GM in SODIUM CHLORIDE 0.9% 250 ML IV SCH ×4 (08:00)
[2018-10-28 08:35] VITALS: BP 168/74
[2018-10-28] MEDS: ENOXAPARIN 30 MG/0.3 ML SYRINGE SUBQ SCH (09:18)
[2018-10-28] MEDS: ASPIRIN EC 81 MG TABLET PO SCH (09:19)
[2018-10-28] MEDS: SPIRONOLACTONE 25 MG TABLET PO SCH (09:20)
[2018-10-28] MEDS: LACTOBACILLUS RHAMNOSUS GG CAPSULE PO SCH (09:20)
[2018-10-28] MEDS: POLYETHYLENE GLYCOL 3350 17 GM PACKET PO SCH (09:20)
[2018-10-28] MEDS: LEVOTHYROXINE 100 MCG TABLET PO SCH (09:20)
[2018-10-28] MEDS: FLUoxetine 10 MG CAPSULE PO SCH (09:20)
[2018-10-28] MEDS: METOPROLOL SUCCINATE 50 MG TABLET PO SCH (09:20)
[2018-10-28] MEDS: FAMOTIDINE 20 MG TABLET PO SCH (09:20)
--- NOTE | 2018-10-28 10:56 | Discharge Plan ---
Discharge Plan Disposition: Home, Self Care Condition: Good Prescriptions: Amox/Clav 875/125 [Augmentin 875/125] 1 each PO Q12H 5 Days #10 tablet Gabapentin [Neurontin] 300 mg PO QPM #30 capsule Metoprolol Succinate [Toprol Xl] 50 mg PO DAILY #30 tablet Diet: Regular Activity Restrictions: Activity as Tolerated Shower Restrictions: No Assistance Devices: Walker Weight Bearing: Full Weight Additional Instructions or Follow Up instructions: You were admitted for worsening cellulitis (skin infection), and a full body rash. You were given steroids, benadryl and your rash improved. Please continue a few more days of antibiotics for your skin infection. You were on a number of medications that can lead to falls, and worsening confusion, please see your new medication list. Please see your primary care provider within one week. No Smoking: If you smoke, Please STOP! Call for help. Follow-up with: Sabiha Allen MD [Primary Care Provider] -
--- NOTE | 2018-10-28 15:33 | DISCHARGE SUMMARY ---
Discharge Summary Admit Date: 10/24/18 Discharge Date: 10/28/18 Discharging Provider: MAYANK Mar Primary Care Provider: Dr. Allen Code Status: Attempt Resuscitation Condition at Discharge: Good Discharge Disposition: 01 Home, Self Care - DIAGNOSES Admission Diagnoses: Cellulitis of left lower limb (L03.116) Gen skin eruption due to drugs and meds taken internally (L27.0) Morbid (severe) obesity due to excess calories (E66.01) Unspecified dementia without behavioral disturbance (F03.90) Other chronic pain (G89.29) Hypokalemia (E87.6) Hypo-osmolality and hyponatremia (E87.1) Discharge Diagnoses with Status of Each Condition: Bilateral cellulitis of lower leg (L03.116) improved and nearly resolved. Acute encephalopathy (G93.40) resolved. Allergic reaction (T78.40XA) improved after Benadryl and steroids. Depression (F32.9) improved, advised to stop some of her sedating home medications. Polypharmacy (Z79.899) heavily advised to stop specifically her aricept and namenda as these medications can lead to injury and falls with her living alone. Hypertension (I10) chronic, stable. Morbid obesity (E66.01) chronic, stable. Elevated troponin (R74.8) resolved, considered to be stress related. - HPI History of Present Illness: HPI per [place]: Eliana Hernandez is a morbidly obese 78-year old female with a past medical history significant for hypertension, hyperlipidemia, CAD, heart murmur, COPD, urinary incontinence, hearing loss, dementia, osteoarthritis, fibromyalgia, depression, hypothyroidism, allergic rhinitis, GERD, chronic cough, insomnia and falls. She presents to the ER today with one of her caregivers, Meagan, for increasing rash and cellulitis. Of note, patient was recently discharged from [facility] on 10/18/2018 after being admitted on 10/16/2018 for BLE cellulitis. She was treated with IV clindamycin with improvement in her BLE cellulitis and discharged on PO clindamycin with instructions for close follow-up with her PCP. On Tuesday night or Tuesday morning, she developed a diffuse rash. EMS was called and they advised the patient to stop taking the antibiotic. She presented to the ER yesterday and was given augmentin and hydroxyzine. She has taken 2 doses of augmention. She presents to the ER again today by the urging of her caregiver because the rash has continued to spread. In route medics gave her epinephrine. In the ER she was given diphenhydramine, famotidine and certrizine. Lab work revealed a WBC of 14.7, eosinophilia 1.2, platelets 496, sodium 127, potassium 3.2. Her respiratory system is unaffected by the rash. She is stable on room and denies shortness of breath. She does not have increased work of breathing. She states that her head itches currently and yesterday her arms itched. She denies having a rash like this before. She denies chest pain, palpitations, nausea/vomiting. She has had diarrhea. She is being admitted for IV antibiotics for her continued cellulitis. Patient wishes to be a full code. - HOSPITAL COURSE Hospital Course: The patient had a profound drug rash that slowly improved after IV Benadryl and IV steroids. She was completely weaned off her Namenda, Aricept and Prozac, with a reduced dose of Gabapentin to be taken only at night. She complained that she thought she took way too many pills anyway and was happy with the changes. A new medication list was reviewed with her and she was instructed to continue the Augmentin as previously prescribed and to throw away the Clindamycin. She was very anxious to return home, was medically stable and discharged. - ALLERGIES Allergies/Adverse Reactions: Allergies Allergy/AdvReac Type Severity Reaction Status Date / Time lisinopril Allergy Anaphylaxis Verified 10/16/18 15:07 rivastigmine [From Exelon] Allergy Rash Verified 10/16/18 15:07 rivastigmine tartrate * Allergy Rash Verified 10/16/18 15:07 [From Exelon] - MEDICATIONS Home Medications: Ambulatory Orders Medication Instructions Recorded Confirmed Flaxseed Oil 1 tab PO TID 06/03/17 10/24/18 Hydrocodone/Acetaminophen 1 tab PO Q6H PRN 06/03/17 10/24/18 [Hydrocodone-Acetamin 7.5-325] Loperamide HCl [Loperamide] 1 tab PO DAILY 06/03/17 10/24/18 Montelukast [Singulair] 10 mg PO DAILY 06/03/17 10/24/18 [place]-3/Dha/Epa/Fish Oil [Fish Oil 1 tab PO TID 06/03/17 10/24/18 1,000 mg Softgel] Simvastatin [Zocor] 20 mg PO DAILY 06/03/17 10/24/18 Aspirin [Adult Low Dose Aspirin EC] 81 mg PO DAILY 03/01/18 10/24/18 Cholecalciferol (Vitamin D3) 1,000 unit PO DAILY 03/01/18 10/24/18 [Vitamin D3] Cranberry 1 cap PO DAILY 03/01/18 10/24/18 Multivitamin [Multivitamins] 1 cap PO DAILY 03/01/18 10/24/18 Vitamin E (Dl,Tocopheryl Acet) 1 cap PO DAILY 03/01/18 10/24/18 [Vitamin E] Levothyroxine Sodium 100 mcg PO DAILY 10/16/18 10/24/18 Spironolactone 25 mg PO DAILY 10/16/18 10/24/18 Acetaminophen [Tylenol] 650 mg PO Q4HR PRN tablet 10/18/18 10/24/18 Famotidine [Pepcid] 20 mg PO DAILY tablet 10/18/18 10/24/18 Lactobacillus Rhamnosus GG 1 cap PO DAILY #30 capsule 10/18/18 10/24/18 [Culturelle] traZODone [Desyrel] 50 mg PO QPM PRN tablet 10/18/18 10/24/18 Amox/Clav 875/125 [Augmentin 1 each PO Q12H 5 Days #10 tablet 10/28/18 875/125] Gabapentin [Neurontin] 300 mg PO QPM #30 capsule 10/28/18 Metoprolol Succinate [Toprol Xl] 50 mg PO DAILY #30 tablet 10/28/18 - PHYSICAL EXAM AT DISCHARGE General Appearance: positive: No acute distress, Alert Eyes Bilateral: positive: PERRL ENT: positive: Pharynx nml, No signs of dehydration Neck: positive: Thyroid nml, No JVD, Trachea midline Respiratory: positive: Chest non-tender, No respiratory distress, Breath sounds nml Cardiovascular: positive: No gallop, Irregularly irregular, Systolic murmur Peripheral Pulses: positive: 1+ Abdomen: positive: Non-tender, Nml bowel sounds, Other (obese, soft) Back: positive: Nml inspection Skin: positive: No rash, Warm, Dry, Pallor, Skin rash Extremities: positive: Non-tender, Full ROM, Pedal edema (trace edema, no further redness to BLEs), Joint swelling Neurologic/Psychiatric: positive: Oriented x3, CN's nml (2-12), Motor nml, Sensation nml, Weakness, Depressed mood/affect Reflexes: Bicep (R): 3+, Bicep (L): 3+ - LABS Result Diagrams: 10/28/18 06:19 10/28/18 06:19 - DIAGNOSTIC IMAGING Diagnostic Imaging Results: Final report reviewed Diagnostic Imaging Results Comments: EXAM: CT ANGIOGRAM CHEST EXAM DATE: 10/27/2018 03:56 AM. IMPRESSION: 1 . No evidence for pulmonary emboli. 2. Findings supportive of early interstitial edema. 3. Small pleural effusions. 4. Cardiomegaly and extensive atherosclerotic vascular calcifications of the coronary arteries. - SEPSIS Current Stage of Sepsis: Ruled out - FOLLOW UP Follow Up: Disposition: Home, Self Care Prescriptions: Amox/Clav 875/125 [Augmentin 875/125] 1 each PO Q12H 5 Days #10 tablet Gabapentin [Neurontin] 300 mg PO QPM #30 capsule Metoprolol Succinate [Toprol Xl] 50 mg PO DAILY #30 tablet Additional Instructions or Follow Up instructions: You were admitted for worsening cellulitis (skin infection), and a full body rash. You were given steroids, benadryl and your rash improved. Please continue a few more days of antibiotics for your skin infection. You were on a number of medications that can lead to falls, and worsening confusion, please see your new medication list. Please see your primary care provider within one week. - TIME SPENT Time Spent in Discharge (Minutes): 50
== END 2018-10-28 12:25 | disposition home or self-care (01) | DRG 603 ==
LOC: EDUNIT# → ED 14:14 → MS2 16:09
PROVIDERS: ADMIT Nurse Practitioner; ATTEND Nurse Practitioner
DX: L03.116 Cellulitis of left lower limb (principal); G93.40 Encephalopathy, unspecified; E87.1 Hypo-osmolality and hyponatremia; L03.115 Cellulitis of right lower limb; E78.00 Pure hypercholesterolemia, unspecified; L27.0 Generalized skin eruption due to drugs and medicaments taken internally; T36.8X5A Adverse effect of other systemic antibiotics, initial encounter; F32.9 Major depressive disorder, single episode, unspecified; I10 Essential (primary) hypertension; E66.01 Morbid (severe) obesity due to excess calories; Z68.39 Body mass index [BMI] 39.0-39.9, adult; R74.8 Abnormal levels of other serum enzymes; F43.9 Reaction to severe stress, unspecified; R35.1 Nocturia; R35.0 Frequency of micturition; E87.6 Hypokalemia; J44.9 Chronic obstructive pulmonary disease, unspecified; E78.5 Hyperlipidemia, unspecified; G30.9 Alzheimer's disease, unspecified; F02.80 Dementia in other diseases classified elsewhere, unspecified severity, without behavioral disturbance, psychotic disturbance, mood disturbance, and anxiety; R01.1 Cardiac murmur, unspecified; M19.90 Unspecified osteoarthritis, unspecified site; M79.7 Fibromyalgia; J30.9 Allergic rhinitis, unspecified; I25.10 Atherosclerotic heart disease of native coronary artery without angina pectoris; E03.9 Hypothyroidism, unspecified; K21.9 Gastro-esophageal reflux disease without esophagitis; R32 Unspecified urinary incontinence; G47.00 Insomnia, unspecified; G47.30 Sleep apnea, unspecified; G62.9 Polyneuropathy, unspecified; J32.9 Chronic sinusitis, unspecified; H54.7 Unspecified visual loss; H91.90 Unspecified hearing loss, unspecified ear; G89.29 Other chronic pain; M54.9 Dorsalgia, unspecified; Z91.81 History of falling; Z79.891 Long term (current) use of opiate analgesic; Z79.82 Long term (current) use of aspirin
CPT/HCPCS: 36415; 71275; 80048; 80053; 80202; 82550; 83605; 83690; 83735; 83880; 84100; 84132; 84443; 84484; 85025; 86140; 87040; 87070; 87205; 93005; 93306; 96374; 99283; 99284

== ENCOUNTER 2019-01-19 12:33 | Outpatient (CLI) | payer MEDICARE, MEDICAID ==
--- NOTE | 2019-01-19 15:06 | Mammography Report ---
Reason: 6 MO F/U FOR CALCS Procedure Date: 01/19/2019 Accession Number: [id number] / [id number] Procedure: VIOLETA - Diagnostic Dig Bilat CPT Code: FULL RESULT: EXAM: Diagnostic Dig Bilat DATE: 01/19/2019 1:59 PM CLINICAL HISTORY: Diagnostic examination. History of nulliparity and family history of breast cancer in a sister at the age of 45. This examination is continued follow-up of a grouping of calcifications in the upper outer quadrant of the right breast and a grouping of calcifications in the central left breast. TECHNIQUE: (B) - Bilateral CC and MLO views were obtained. Bilateral ML views are obtained. Right magnified CC and magnified ML views as well as left magnified CC and magnified ML views are also obtained. COMPARISON: 11/07/2017 through 01/22/2015. PARENCHYMAL PATTERN: (A) - The breast(s) demonstrate(s) scattered fibroglandular densities. FINDINGS: The right breast grouping of calcifications approximately 12.5 cm from the nipple in the central upper outer breast remains stable, fine calcifications. There is no associated mass or architectural distortion. The grouping of calcifications in the left breast approximately 6.5 cm from the nipple in the central breast remains predominantly coarse with no suspicious interval change and no associated architectural distortion or mass. There are no suspicious masses, calcifications, or areas of distortion. IMPRESSION: Probably Benign. BI-RADS category 3. RECOMMENDATION: (12MOS) - Recommend 12 month follow-up exam. BI-RADS CATEGORY: (3) - Probably Benign. STANDARD QUALIFYING STATEMENTS: 1. This examination was not reviewed with the aid of Computer-Aided Detection (CAD). 2. A negative or benign imaging report should not preclude biopsy if clinically suspicious findings are present. 3. Dense breasts may obscure an underlying neoplasm. 4. This examination was reviewed with the aid of 3D breast imaging (tomosynthesis).
== END 2019-01-19 12:34 | disposition home or self-care (01) ==
LOC: DI 12:33
PROVIDERS: ATTEND Internal Medicine
DX: R92.1 Mammographic calcification found on diagnostic imaging of breast (principal)
CPT/HCPCS: 77066

== ENCOUNTER 2019-04-04 14:22 | Outpatient (CLI) | payer MEDICARE, MEDICAID ==
[2019-04-04 14:59] LABS: ALBUMIN 3.6 g/dL (3.2-5.5); ALBUMIN/GLOBULIN RATIO 1.2 (1.0-2.2); BILIRUBIN,TOTAL 0.9 mg/dL (0.2-1.0); CALCIUM 9.7 mg/dL (8.5-10.3); CREATININE 0.8 mg/dL (0.4-1.0); MAGNESIUM 1.7 mg/dL (1.7-2.8); TOTAL PROTEIN 6.6 g/dL (6.7-8.2)
== END 2019-04-04 14:23 | disposition home or self-care (01) ==
LOC: LAB 14:22
PROVIDERS: ATTEND Internal Medicine
DX: E03.9 Hypothyroidism, unspecified (principal); I10 Essential (primary) hypertension; D50.9 Iron deficiency anemia, unspecified; Z79.899 Other long term (current) drug therapy; E78.5 Hyperlipidemia, unspecified
CPT/HCPCS: 36415; 80053; 83735; 84443

== ENCOUNTER 2019-08-30 12:36 | Outpatient (CLI) | payer MEDICARE, MEDICAID ==
--- NOTE | 2019-08-30 19:07 | XRAY Report ---
Reason: FIBROMYALGIA,AMNESTIC DISORDER DUE TO PHYSIOLOGICA Procedure Date: 08/30/2019 Accession Number: [id number] / [id number] Procedure: XR - Wrist 3 View LT CPT Code: Final Report FULL RESULT: EXAM: LEFT WRIST RADIOGRAPHY EXAM DATE: 08/30/2019 12:49 PM. CLINICAL HISTORY: Left wrist pain. Fibromyalgia. COMPARISON: HAND 3 VIEW RT 06/03/2017 3:18 PM. TECHNIQUE: 3 views. FINDINGS: Bones: Normal. No fractures or bone lesions. Joints: Normal. No subluxations. Soft Tissues: Small accessory ossicles next to MCP joints. Small accessory ossicles next to the carpals. 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 RADIA
--- NOTE | 2019-08-31 15:28 | CT Report ---
Reason: FIBROMYALGIA,AMNESTIC DISORDER DUE TO PHYSIOLOGICA Procedure Date: 08/30/2019 Accession Number: [id number] / [id number] Procedure: CT - HEAD WO CPT Code: Final Report FULL RESULT: EXAM: CT HEAD EXAM DATE: 08/30/2019 01:13 PM. CLINICAL HISTORY: 79-year-old with history of fibromyalgia presenting after several amnesia episodes. Evaluate for intracranial pathology. COMPARISON: HEAD W/O 06/03/2017 3:35 PM. TECHNIQUE: Multiaxial CT images were obtained from the foramen magnum to the vertex. Reformats: Sagittal and coronal. IV contrast: None. In accordance with CT protocol optimization, one or more of the following dose reduction techniques were utilized for this exam: automated exposure control, adjustment of mA and/or KV based on patient size, or use of iterative reconstructive technique. FINDINGS: Parenchyma: No acute parenchymal hemorrhage, mass, or midline shift. There are old chronic lacunar infarcts involving bilateral putamen. There is additional moderate bilateral areas of white matter hypoattenuation seen that appear progressed from CT head 06/03/2017. There is no convincing CT evidence of acute infarct. Extraaxial Spaces: Foci and cisterns appear prominent, but appropriate for the extent of volume loss. No subdural or epidural collections identified. Ventricles: Normal in size and position. Sinuses and Orbits: Changes of bilateral lens replacement. Visualized paranasal sinuses, mastoid air cells, moderate cavities are clear. Bones: No evidence of fracture or calvarial defect. Mild bilateral TMJ arthropathy. Other: Vascular calcifications of the cavernous and supraclinoid ICA segments. Vascular calcifications of the intradural vertebral arteries. IMPRESSION: 1. No definite acute intracranial pathology seen; specifically, no acute infarct, acute intracranial hemorrhage, mass, hydrocephalus or midline shift. If there is clinical concern for intracranial pathology or if symptoms persist, an MR brain could be considered to evaluate for small or subtle pathology. 2. Old chronic lacunar infarcts are seen involving bilateral basal ganglia similar to CT head 06/03/2017. 3. Moderate white matter changes that appear progressed from prior study and may represent sequela of chronic small vessel ischemic disease. 4. Mild bilateral TMJ arthropathy. RADIA
== END 2019-08-30 12:37 | disposition home or self-care (01) ==
LOC: DI 12:36
PROVIDERS: ATTEND Internal Medicine
DX: M79.7 Fibromyalgia (principal); M25.832 Other specified joint disorders, left wrist; M26.69 Other specified disorders of temporomandibular joint; F04 Amnestic disorder due to known physiological condition; Z86.73 Personal history of transient ischemic attack (TIA), and cerebral infarction without residual deficits
CPT/HCPCS: 70450

== ENCOUNTER 2019-09-20 13:15 | Outpatient (CLI) | payer MEDICARE, MEDICAID | END 2019-09-20 13:16 | disposition home or self-care (01) | LOC: DI 13:15 | PROVIDERS: ATTEND Internal Medicine | DX: Z53.9 Procedure and treatment not carried out, unspecified reason (principal) ==

== ENCOUNTER 2022-08-02 07:48 | Outpatient (CLI) | payer OTHER | END 2022-08-02 07:49 | disposition critical access hospital (66) | LOC: EMS 07:48 | DX: R41.82 Altered mental status, unspecified (principal); R53.1 Weakness; R50.9 Fever, unspecified; R47.1 Dysarthria and anarthria; R00.0 Tachycardia, unspecified | CPT/HCPCS: A0425; A0429 ==

== ENCOUNTER 2022-08-02 07:51 | Emergency (ER) | payer MEDICARE, MEDICAID ==
--- NOTE | 2022-08-02 08:03 | ED Physician Documentation ---
History of Present Illness - Stated complaint Stated Complaint: AMS - History obtained from History obtained from: EMS - Additonal information Additional information: The patient is brought to the emergency department by EMS from home for chief complaint of altered mental status. The last known normal for the patient was a week ago. She lives by herself in an apartment [place] the street from the hospital and has a POLST stating "DNR with limited interventions". Her medical problems on arrival are not clear. Apparently, a friend of the patient had not heard from her in some days and so decided to check on her this morning. She found her on the floor, minimally responsive, with gaze deviation to the left. She had urinated on herself and was not verbalizing. Medics states she does not seem to be moving her right arm. The patient has not been able to answer any questions and has not seemed alert. Her glucose in route was 121. Her vital signs have other modi been normal, though they were not able to check a temperature because of the short transport duration. The patient did have a bottle of Vicodin next to her, apparently, that it is unclear whether she has taken any, and medics report that the friend stated that the patient would "never" take extra of her medication. The patient is unable to offer any information at this time. Review of Systems Unable to obtain: Unresponsive PD PAST MEDICAL HISTORY - Past Medical History Cardiovascular: Hypertension, High cholesterol, Coronary artery disease, Murmur Respiratory: COPD, Sleep apnea Neuro: Dementia, Peripheral neuropathy Endocrine/Autoimmune: HyPOthyroidism GI: GERD [employer]ICE [employer] JUDGE: Fibroids : 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, Nocturia, Frequency HEENT: Chronic vision loss, Chronic sinusitis, Chronic hearing loss Psych: Depression Musculoskeletal: Osteoarthritis, Fibromyalgia, Chronic back pain Derm: None - Past Surgical History Past Surgical History: Yes Ortho: 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 surgery /JUSTICE [employer] JUDGE: 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 - Present Medications Home Medications: Ambulatory Orders Medication Instructions Recorded Confirmed Flaxseed Oil 1 tab PO TID 06/03/17 11/17/18 Hydrocodone/Acetaminophen 1 tab PO Q6H PRN 06/03/17 11/17/18 [Hydrocodone-Acetamin 7.5-325] Loperamide HCl [Loperamide] 1 tab PO DAILY 06/03/17 11/17/18 Montelukast [Singulair] 10 mg PO DAILY 06/03/17 11/17/18 [place]-3/Dha/Epa/Fish Oil [Fish Oil 1 tab PO TID 06/03/17 11/17/18 1,000 mg Softgel] Simvastatin [Zocor] 20 mg PO DAILY 06/03/17 11/17/18 Aspirin [Adult Low Dose Aspirin EC] 81 mg PO DAILY 03/01/18 11/17/18 Cholecalciferol (Vitamin D3) 2,000 unit PO DAILY 03/01/18 11/17/18 [Vitamin D3] Cranberry 15,000 mg PO DAILY 03/01/18 11/17/18 Multivitamin [Multivitamins] 1 cap PO DAILY 03/01/18 11/17/18 Vitamin E (Dl,Tocopheryl Acet) 1 cap PO DAILY 03/01/18 11/17/18 [Vitamin E] Levothyroxine Sodium 100 mcg PO DAILY 10/16/18 11/17/18 Spironolactone 25 mg PO DAILY 10/16/18 11/17/18 Acetaminophen [Tylenol] 650 mg PO Q4HR PRN tablet 10/18/18 11/17/18 Famotidine [Pepcid] 20 mg PO DAILY tablet 10/18/18 11/17/18 Lactobacillus Rhamnosus GG 1 cap PO DAILY #30 capsule 10/18/18 11/17/18 [Culturelle] traZODone [Desyrel] 50 mg PO QPM PRN tablet 10/18/18 11/17/18 Amox/Clav 875/125 [Augmentin 1 each PO Q12H 5 Days #10 tablet 10/28/18 11/17/18 875/125 Tab] Gabapentin [Neurontin] 300 mg PO QPM #30 capsule 10/28/18 11/17/18 Metoprolol Succinate [Toprol Xl] 50 mg PO DAILY #30 tablet 10/28/18 11/17/18 B-Complex with Vitamin C [Vitamin 1 each PO DAILY 11/17/18 11/17/18 B-Complex with Vit C] Ferrous Sulfate 325 mg PO DAILY 11/17/18 11/17/18 metOLazone [Metolazone] 2.5 mg PO DAILY 11/17/18 11/17/18 - Allergies Allergies/Adverse Reactions: Allergies Allergy/AdvReac Type Severity Reaction Status Date / Time lisinopril Allergy Anaphylaxis Verified 11/16/18 15:55 rivastigmine [From Exelon] Allergy Rash Verified 11/16/18 15:55 rivastigmine tartrate * Allergy Rash Verified 11/16/18 15:55 [From Exelon] - Social History Does the pt smoke?: No Smoking Status: Never smoker Does the pt drink ETOH?: No Does the pt have substance abuse?: No - Immunizations Immunizations are current?: Yes - POLST Patient has POLST: No POLST Status: Full Code PD ED PE NORMAL - Vitals Vital signs reviewed: Yes - General General: No acute distress, Other (Disheveled patient in urine soaked shirt who is awake but not responsive. No obvious distress.) - HEENT HEENT: Atraumatic, Other (Pupils are equal and about 2 mm in diameter. Patient cannot follow instructions to test extraocular muscles. Mucous membranes are dry.) - Cardiac Cardiac: RRR, No murmur - Respiratory Respiratory: No respiratory distress, Clear bilaterally - Abdomen Abdomen: Soft, Non tender, Non distended - Derm Derm: Normal color, Warm and dry, No rash - Extremities Extremities: No deformity, No edema - Neuro Neuro: Other (Patient is not moving her right upper extremity. She does have spontaneous movement of her bilateral lower extremities and left upper extremity.) - Psych Psych: Normal mood, Normal affect Results - Vitals Vitals: Vital Signs - 24 hr 08/02/22 08/02/22 08/02/22 08:04 11:18 13:00 Temperature 100.1 C H Heart Rate 103 H 94 83 Respiratory 19 18 16 Rate Blood Pressure 165/87 H 152/93 H 163/87 H O2 Saturation 100 100 100 08/02/22 08/02/22 15:00 17:00 Temperature 36.6 C Heart Rate 96 83 Respiratory 16 16 Rate Blood Pressure 164/75 H 153/82 H O2 Saturation 100 100 Oxygen O2 Source [Without Activity] Room air O2 Source Room air - Labs Labs: Laboratory Tests 08/02/22 08/02/22 08/02/22 08:11 08:18 08:18 WBC 14.1 H RBC 4.27 Hgb 13.4 Hct 39.8 MCV 93.2 MCH 31.4 H MCHC 33.7 RDW 12.7 Plt Count 384 MPV 8.5 Neut # (Auto) 12.4 H Lymph # (Auto) 0.8 L [place] # (Auto) 0.7 Eos # (Auto) 0.0 Baso # (Auto) 0.0 Absolute Nucleated RBC 0.00 Nucleated RBC % 0.0 Sodium 141 Potassium 3.6 Chloride 103 Carbon Dioxide 23 Anion Gap 15.0 H BUN 20 Creatinine 0.8 Estimated GFR (MDRD) 69 L Glucose 141 H Calcium 9.2 Total Bilirubin 2.0 H AST 18 ALT < 10 L Alkaline Phosphatase 41 L Troponin I High Sens Total Protein 6.5 L Albumin 3.5 Globulin 3.0 Albumin/Globulin Ratio 1.2 Lipase 26 TSH Urine Color Urine Clarity Urine pH Ur Specific [place] Urine Protein Urine Glucose (UA) Urine Ketones Urine Occult Blood Urine Nitrite Urine Bilirubin Urine Urobilinogen Ur Leukocyte Esterase Urine RBC Urine WBC Ur Squamous Epith Cells Urine Bacteria Ur Microscopic Review Urine Culture Comments Nasal Adenovirus (PCR) NOT DETECTED Nasal B. parapertussis DNA (PCR) NOT DETECTED Nasal Coronavir 229E PCR NOT DETECTED Nasal Coronavir HKU1 PCR NOT DETECTED Nasal Coronavir NL63 PCR NOT DETECTED Nasal Coronavir OC43 PCR NOT DETECTED Nasal Enterovir/Rhinovir PCR NOT DETECTED Nasal Influenza B PCR NOT DETECTED Nasal Influenza A PCR NOT DETECTED Nasal Parainfluen 1 PCR NOT DETECTED Nasal Parainfluen 2 PCR NOT DETECTED Nasal Parainfluen 3 PCR NOT DETECTED Nasal Parainfluen 4 PCR NOT DETECTED Nasal RSV (PCR) NOT DETECTED Nasal B.pertussis DNA PCR NOT DETECTED Nasal C.pneumoniae (PCR) NOT DETECTED [place] Human Metapneumo PCR NOT DETECTED Nasal M.pneumoniae (PCR) NOT DETECTED Nasal SARS-CoV-2 (PCR) NOT DETECTED 08/02/22 08/02/22 08/02/22 08:18 08:18 10:48 WBC RBC Hgb Hct MCV MCH MCHC RDW Plt Count MPV Neut # (Auto) Lymph # (Auto) [place] # (Auto) Eos # (Auto) Baso # (Auto) Absolute Nucleated RBC Nucleated RBC % Sodium Potassium Chloride Carbon Dioxide Anion Gap BUN Creatinine Estimated GFR (MDRD) Glucose Calcium Total Bilirubin AST ALT Alkaline Phosphatase Troponin I High Sens 84.1 H* 94.8 H* Total Protein Albumin Globulin Albumin/Globulin Ratio Lipase TSH 1.56 Urine Color Urine Clarity Urine pH Ur Specific [place] Urine Protein Urine Glucose (UA) Urine Ketones Urine Occult Blood Urine Nitrite Urine Bilirubin Urine Urobilinogen Ur Leukocyte Esterase Urine RBC Urine WBC Ur Squamous Epith Cells Urine Bacteria Ur Microscopic Review Urine Culture Comments Nasal Adenovirus (PCR) Nasal B. parapertussis DNA (PCR) Nasal Coronavir 229E PCR Nasal Coronavir HKU1 PCR Nasal Coronavir NL63 PCR Nasal Coronavir OC43 PCR Nasal Enterovir/Rhinovir PCR Nasal Influenza B PCR Nasal Influenza A PCR Nasal Parainfluen 1 PCR Nasal Parainfluen 2 PCR Nasal Parainfluen 3 PCR Nasal Parainfluen 4 PCR Nasal RSV (PCR) Nasal B.pertussis DNA PCR Nasal C.pneumoniae (PCR) [place] Human Metapneumo PCR Nasal M.pneumoniae (PCR) Nasal SARS-CoV-2 (PCR) 08/02/22 11:17 WBC RBC Hgb Hct MCV MCH MCHC RDW Plt Count MPV Neut # (Auto) Lymph # (Auto) [place] # (Auto) Eos # (Auto) Baso # (Auto) Absolute Nucleated RBC Nucleated RBC % Sodium Potassium Chloride Carbon Dioxide Anion Gap BUN Creatinine Estimated GFR (MDRD) Glucose Calcium Total Bilirubin AST ALT Alkaline Phosphatase Troponin I High Sens Total Protein Albumin Globulin Albumin/Globulin Ratio Lipase TSH Urine Color DARK YELLOW Urine Clarity HAZY Urine pH 6.0 Ur Specific [place] >=1.030 H Urine Protein >=300 H Urine Glucose (UA) NEGATIVE Urine Ketones 15 H Urine Occult Blood SMALL H Urine Nitrite NEGATIVE Urine Bilirubin NEGATIVE Urine Urobilinogen 0.2 (NORMAL) Ur Leukocyte Esterase NEGATIVE Urine RBC 6-10 H Urine WBC 0-3 Ur Squamous Epith Cells RARE Squamous Urine Bacteria Few Ur Microscopic Review INDICATED Urine Culture Comments NOT INDICATED Nasal Adenovirus (PCR) Nasal B. parapertussis DNA (PCR) Nasal Coronavir 229E PCR Nasal Coronavir HKU1 PCR Nasal Coronavir NL63 PCR Nasal Coronavir OC43 PCR Nasal Enterovir/Rhinovir PCR Nasal Influenza B PCR Nasal Influenza A PCR Nasal Parainfluen 1 PCR Nasal Parainfluen 2 PCR Nasal Parainfluen 3 PCR Nasal Parainfluen 4 PCR Nasal RSV (PCR) Nasal B.pertussis DNA PCR Nasal C.pneumoniae (PCR) [place] Human Metapneumo PCR Nasal M.pneumoniae (PCR) Nasal SARS-CoV-2 (PCR) - Rads (name of study) CT head Radiology: Final report received, EMP read indepedently, See rad report (Large left ischemic stroke with uncal effacement and midline shift.) PD MEDICAL DECISION MAKING - ED course Complexity details: reviewed results, re-evaluated patient, considered differential ED course: The patient was evaluated for her altered mental status and found to have a very large left MCA distribution CVA. It is unclear exactly when this had happened though likely subacute. The patient did incidentally have elevated troponins as well, though given the [place] prognosis for this patient's neurologic status, and her DNR wishes, this was not pursued further. I spoke with both the patient's granddaughter, Emely, and her son, Scott, both of whom are power of attorneys, by telephone. They expressed understanding of the gravity of the patient's prognosis and the importance of comfort care. I have consulted social work and at this point in time, the plan is to get the patient set up with hospice and for the granddaughter to move into the patient's apartment across the street and become her primary caregiver until the time that the patient will pass away. This is the granddaughter's wish, though we have also discussed with the family the option of having care in a snf facility, though this will likely take an extended amount of time to arrange. The patient is signed out to the oncoming emergency physician at change of shift, pending final disposition in the coming days. Departure - Departure Clinical Impression: Ischemic stroke Altered mental status Qualifiers: Altered mental status type: unspecified Qualified Code(s): R41.82 - Altered mental status, unspecified Condition: Stable
[2022-08-02] MEDS ORDERED: SODIUM CHLORIDE 0.9% 1,000 ML IV STA ×4 (08:04→23:00)
[2022-08-02] MEDS ORDERED: NALOXONE 0.4 MG/ML VIAL IVP STA (08:05)
--- NOTE | 2022-08-02 08:28 | XRAY Report ---
PROCEDURE: Chest 1 View X-Ray INDICATIONS: fever TECHNIQUE: One view of the chest was acquired. COMPARISON: None. FINDINGS: Surgical changes and devices: None. Lungs and pleura: Rotated film. No gross pulmonary infiltrates. Mediastinum: Mediastinal contours appear normal. Mild cardiomegaly. Bones and chest wall: No suspicious bony lesions. Overlying soft tissues appear unremarkable. IMPRESSION: Rotated film. No gross pulmonary infiltrates. Comment: PA and lateral chest films may be helpful. Reviewed by: Eloy Simpson MD on 08/02/2022 8:27 AM PST Approved by: Eloy Simpson MD on 08/02/2022 8:27 AM PST Station ID: [id number]
[2022-08-02 08:34] LABS: BASOPHILS % (AUTO) 0.1 %; HCT - HEMATOCRIT 39.8 % (37.0-47.0); HGB - HEMOGLOBIN 13.4 g/dL (12.0-16.0); LYMPHOCYTES # (AUTO) 0.8 10^3/uL (1.5-3.5); MEAN CORPUSCULAR HEMOGLOBIN 31.4 pg (27.0-31.0); MEAN CORPUSCULAR HGB CONC 33.7 g/dL (32.0-36.0); MEAN CORPUSCULAR VOLUME 93.2 fL (81.0-99.0); MEAN PLATELET VOLUME 8.5 fL (7.9-10.8); MONOCYTES # (AUTO) 0.7 10^3/uL (0.0-1.0); NEUTROPHILS # (AUTO) 12.4 10^3/uL (1.5-6.6); NEUTROPHILS % (AUTO) 88.5 %; PLT - PLATELET COUNT 384 10^3/uL (130-450); RED BLOOD COUNT 4.27 10^6/uL (4.20-5.40); RED CELL DISTRIBUTION WIDTH 12.7 % (12.0-15.0); WHITE BLOOD COUNT 14.1 x10^3/uL (4.8-10.8)
--- NOTE | 2022-08-02 08:46 | CT Report ---
PROCEDURE: HEAD WO INDICATIONS: aloc TECHNIQUE: Noncontrast 4.5 mm thick angled axial sections acquired from the foramen magnum to the vertex. For r adiation dose reduction, the following was used: automated exposure control, adjustment of mA and/or kV according to patient size. COMPARISON: 08/30/2019. FINDINGS: Image quality: Excellent. CSF spaces: Large subacute left MCA infarct with effacement of sulci and extensive cytotoxic edema a nd mass effect on the left lateral ventricle with 5 mm midline shift. Basal cisterns are patent. No extra-axial fluid collections. Ventricles are normal in size and shape. Brain: Large subacute left MCA infarct with effacement of sulci extensive cytotoxic edema and mass ef fect on the left lateral ventricle with 5 mm of midline shift. Hyperdense left MCA sign. Effacement o f the left uncus. Age-related volume loss and small vessel ischemic change. Skull and face: Calvarium and visualized facial bones are intact, without suspicious lesions. Sinuses: Visualized sinuses and mastoids are clear. IMPRESSION: 1. Large subacute left MCA infarct with extensive cytotoxic edema, mass effect on the left lateral vent ricle, 5 mm of midline shift, and effacement of the left uncus. No hemorrhagic transformation noted. 2. Hyperdense left MCA sign consistent with left MCA occlusion. Above discussed with Carmel Wilkins MD at the time of dictation on 08/02/2022 at 0842 hours. Reviewed by: Eloy Simpson MD on 08/02/2022 8:45 AM PST Approved by: Eloy Simpson MD on 08/02/2022 8:45 AM PST Station ID: [id number]
[2022-08-02 09:06] LABS: ALBUMIN 3.5 g/dL (3.2-5.5); ALBUMIN/GLOBULIN RATIO 1.2 (1.0-2.2); ALKALINE PHOSPHATASE 41 IU/L (42-121); ALT ALANINE AMINOTRANSFERASE < 10 IU/L (10-60); AST ASPARTATE AMINOTRANSFERASE 18 IU/L (10-42); BUN - BLOOD UREA NITROGEN 20 mg/dL (6-20); CALCIUM 9.2 mg/dL (8.5-10.3); CARBON DIOXIDE - CO2 23 mmol/L (21-32); CHLORIDE 103 mmol/L (101-111); CREATININE 0.8 mg/dL (0.4-1.0); GFR - MDRD 69 (>89); GLUCOSE 141 mg/dL (70-100); LIPASE 26 U/L (22-51); POTASSIUM 3.6 mmol/L (3.5-5.0); SODIUM 141 mmol/L (135-145); TOTAL PROTEIN 6.5 g/dL (6.7-8.2)
[2022-08-02 09:18] LABS: B. PARAPERTUSSIS- RESP PCR PAN NOT DETECTED; B. PERTUSSIS- RESP PCR PANEL NOT DETECTED; C. PNEUMONIAE- RESP PCR PANEL NOT DETECTED; CORONAVIRUS 229E-RESP PCR NOT DETECTED; CORONAVIRUS HKU1-RESP PCR NOT DETECTED; CORONAVIRUS NL63-RESP PCR NOT DETECTED; CORONAVIRUS OC43-RESP PCR NOT DETECTED; HUMAN METAPNEUMOVIRUS NOT DETECTED; INFLUENZA A- RESP PCR PANEL NOT DETECTED; INFLUENZA B - RESP PCR PANEL NOT DETECTED; M. PNEUMONIAE- RESP PCR PANEL NOT DETECTED; PARAINFLUENZA VIRUS 1 NOT DETECTED; PARAINFLUENZA VIRUS 2 NOT DETECTED; PARAINFLUENZA VIRUS 3 NOT DETECTED; PARAINFLUENZA VIRUS 4 NOT DETECTED; RHINOVIRUS/ENTEROVIRUS NOT DETECTED; RSV- RESP PCR PANEL NOT DETECTED; SARS-CoV-2 -RESP PCR PANEL NOT DETECTED
[2022-08-02 11:28] LABS: GLUCOSE, URINE (UA) NEGATIVE (NEGATIVE); KETONES,URINE (UA) 15 mg/dL (NEGATIVE); LEUKOCYTE ESTERASE, URINE NEGATIVE (NEGATIVE); NITRITE,URINE NEGATIVE (NEGATIVE); OCCULT BLOOD,URINE SMALL (NEGATIVE); PROTEIN,URINE >=300 mg/dL (NEGATIVE); UROBILINOGEN,URINE 0.2 (NORMAL) E.U./dL (NORMAL)
[2022-08-02 11:44] LABS: BACTERIA,URINE Few /HPF (None Seen); BILIRUBIN,URINE NEGATIVE (NEGATIVE); CLARITY,URINE HAZY (CLEAR); ICTOTEST,URINE NEGATIVE; SQUAMOUS EPITHELIAL CELL,UR RARE Squamous (<= Few); WBC,URINE 0-3 /HPF (0-5)
[2022-08-03] MEDS ORDERED: SODIUM CHLORIDE 0.9% 1,000 ML IV STA (05:13)
[2022-08-03] MEDS ORDERED: MORPHINE 2 MG/ML CARPUJECT IVP STA ×2 (10:13→12:46)
--- NOTE | 2022-08-03 11:09 | ED Physician Documentation ---
ED Addendum - Addendum Addendum: 08/03/22 11:08 Dr. Balderrama for hospice came in to evaluate the patient and talk with the family. The patient does meet hospice criteria and will be accepted to the service. The patient remains still obtunded with low oxygenation and hypoventilation. Blood pressure is low. Her CT scan did show an was pretty significant stroke with edema and shift. This looks to be end-of-life care. Dr. Balderrama asked that I order some morphine. They placed her down to a nasal cannula. She will be placed in hospice GIP bed. Disposition: Admission to the hospital and hospice Diagnoses: 1. Severe ischemic stroke 2. Altered mental status 3. Hypoxia
[2022-08-03 12:44] VITALS: BP 143/82
== END 2022-08-03 13:59 | disposition critical access hospital (66) ==
LOC: EDUNIT# → ED 07:51
DX: I63.512 Cerebral infarction due to unspecified occlusion or stenosis of left middle cerebral artery (principal); G83.21 Monoplegia of upper limb affecting right dominant side; R40.4 Transient alteration of awareness; R09.02 Hypoxemia; I48.91 Unspecified atrial fibrillation; I44.4 Left anterior fascicular block; R79.89 Other specified abnormal findings of blood chemistry; Z66 Do not resuscitate; I10 Essential (primary) hypertension; I25.10 Atherosclerotic heart disease of native coronary artery without angina pectoris; J44.9 Chronic obstructive pulmonary disease, unspecified; F03.90 Unspecified dementia, unspecified severity, without behavioral disturbance, psychotic disturbance, mood disturbance, and anxiety; Z79.82 Long term (current) use of aspirin
CPT/HCPCS: 36415; 80053; 81001; 81003; 83690; 84443; 84484; 85025; 87086; 87633; 93005; 96361; 96374; 96375; 96376; 99285

== ENCOUNTER 2022-08-03 11:00 | Inpatient (IN) | payer OTHER ==
[2022-08-03] MEDS ORDERED: CARBOXYMETHYLCELLULOSE OPHTH DROPS EACHEYE PRN (11:30)
[2022-08-03] MEDS ORDERED: HALOPERIDOL 5 MG/ML VIAL IVP PRN (11:30)
[2022-08-03] MEDS ORDERED: GLYCOPYRROLATE 1 MG/5 ML VIAL SUBQ PRN (11:30)
[2022-08-03] MEDS ORDERED: MORPHINE 2 MG/ML CARPUJECT IVP PRN ×3 (11:30→14:56)
[2022-08-03] MEDS ORDERED: LORazepam 2 MG/ML VIAL IVP PRN (11:30)
[2022-08-03] MEDS ORDERED: ACETAMINOPHEN 650 MG SUPP PR PRN (11:30)
--- NOTE | 2022-08-03 11:48 | HISTORY & PHYSICAL EXAMINATION ---
Chief Complaint - Chief Complaint Chief Complaint: 82 yo female was found down and brought to the ED unresponsive History of Present Illness - Admitted From Admitted From:: ED - History of Present Illness HPI Comment/Other: 82 yo female w/CAD, HTN, HL, COPD, chronic back pain, depression, dementia (suspected relatively mild as she was living home alone), hypothyroidism, GERD and fibromyalgia who was found down unresponsive in her apartment yesterday am. She was last known to be normal on the evening of 07/30 when she spoke to a friend. As she had not been heard from over the weekend, a friend checked on h er yesterday and found her on the floor, minimally responsive, having had urinary incontinence. EMS was called and pt was transferred to the ED (she lives across the street from the hospital). In the ED, work-up was performed. She was found to have mild leukocytosis at 14, mild hyperbilirubinemia, evidence of an NSTEMI and a large L MCA stroke w/5mm of midline shift and uncal effacement. Viral testing was negative. She was given IVFs and granddaughter was contacted. It was felt she had a catastrophic stroke and they recommended hospice care. Currently, pt appears very uncomfortable. She is tachycardic, tachypneic and is fidgeting. She is nonverbal, noncommunicative. Granddaughter is at bedside. She expresses that her grandmother would want comfort care. She expresses concern about the IVFs potentially prolonging her dying process. She reports pt's son lives in [place] and will be handling estate issues but likely won't be able to fly here d/t the holiday week and difficulty getting flights. 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 Her 2 sisters and one brother of cancer. She has one remaining brother who is alive and well. Social History Notes: The patient was born in [place], , had one son who now lives in [place]. She was from her son's father when her son was very young and never remarried. 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 She lives independently near the hospital in [place] and has care givers about 5 days per week who help with cooking, cleaning and errands. She denies the use of alcohol, tobacco or illicit drugs. She wishes to be a FULL code. - Substance History Use: Uses substance without health or social issues: NONE - POLST Patient has POLST: No POLST Status: Full Code Meds/Allgy - Home Medications Home Medications: Ambulatory Orders Medication Instructions Recorded Confirmed Flaxseed Oil 1 tab PO TID 06/03/17 11/17/18 Hydrocodone/Acetaminophen 1 tab PO Q6H PRN 06/03/17 11/17/18 [Hydrocodone-Acetamin 7.5-325] Loperamide HCl [Loperamide] 1 tab PO DAILY 06/03/17 11/17/18 Montelukast [Singulair] 10 mg PO DAILY 06/03/17 11/17/18 [place]-3/Dha/Epa/Fish Oil [Fish Oil 1 tab PO TID 06/03/17 11/17/18 1,000 mg Softgel] Simvastatin [Zocor] 20 mg PO DAILY 06/03/17 11/17/18 Aspirin [Adult Low Dose Aspirin EC] 81 mg PO DAILY 03/01/18 11/17/18 Cholecalciferol (Vitamin D3) 2,000 unit PO DAILY 03/01/18 11/17/18 [Vitamin D3] Cranberry 15,000 mg PO DAILY 03/01/18 11/17/18 Multivitamin [Multivitamins] 1 cap PO DAILY 03/01/18 11/17/18 Vitamin E (Dl,Tocopheryl Acet) 1 cap PO DAILY 03/01/18 11/17/18 [Vitamin E] Levothyroxine Sodium 100 mcg PO DAILY 10/16/18 11/17/18 Spironolactone 25 mg PO DAILY 10/16/18 11/17/18 Acetaminophen [Tylenol] 650 mg PO Q4HR PRN tablet 10/18/18 11/17/18 Famotidine [Pepcid] 20 mg PO DAILY tablet 10/18/18 11/17/18 Lactobacillus Rhamnosus GG 1 cap PO DAILY #30 capsule 10/18/18 11/17/18 [Culturelle] traZODone [Desyrel] 50 mg PO QPM PRN tablet 10/18/18 11/17/18 Amox/Clav 875/125 [Augmentin 1 each PO Q12H 5 Days #10 tablet 10/28/18 11/17/18 875/125 Tab] Gabapentin [Neurontin] 300 mg PO QPM #30 capsule 10/28/18 11/17/18 Metoprolol Succinate [Toprol Xl] 50 mg PO DAILY #30 tablet 10/28/18 11/17/18 B-Complex with Vitamin C [Vitamin 1 each PO DAILY 11/17/18 11/17/18 B-Complex with Vit C] Ferrous Sulfate 325 mg PO DAILY 11/17/18 11/17/18 metOLazone [Metolazone] 2.5 mg PO DAILY 11/17/18 11/17/18 - Allergies Allergies/Adverse Reactions: Allergies Allergy/AdvReac Type Severity Reaction Status Date / Time lisinopril Allergy Anaphylaxis Verified 11/16/18 15:55 rivastigmine [From Exelon] Allergy Rash Verified 11/16/18 15:55 rivastigmine tartrate * Allergy Rash Verified 11/16/18 15:55 [From Exelon] Review of Systems - Other Findings Other Findings: unable to obtain Prior Level of Functionality: Independent Exam - Vital Signs Reviewed Vital Signs: Yes - Physical Exam General Appearance: positive: Moderate distress, Other (unresponsive elderly female) Eyes Bilateral: positive: PERRL, Other (eyes deviated to the left) ENT: positive: Pharynx nml, Dry mucous membranes Neck: positive: Nml inspection, Thyroid nml, Trachea midline Respiratory: positive: Other (tachypneic, coarse but clear blaterally, increased WOB) Cardiovascular: positive: No murmur, No gallop, Tachycardia Abdomen: positive: Non-tender, No organomegaly, Nml bowel sounds, No distention Skin: positive: Color nml, No rash, Warm, Dry Extremities: positive: Non-tender Neurologic/Psychiatric: positive: Other (unresponsive/noncommunicative) Conclusion/Plan - Other Other Results/Comments: 1. Catastrophic L MCA CVA 2. NSTEMI 3. Acute hypoxic respiratory failure Pt will be admitted to hospice under [facility] level of care. She appeared uncomfortable during my evaluation. I d/c'd face mask and she has early pressure injury to her chin. Nasal cannula at 2lpm placed. IVF decreased to 75 ml/hr and then d/c'd after discussion w/granddaughter. Requested morphine 4 mg IV. Pt did appear more comfortable after above interventions. [place] cath remai ns in place. Suspect she will need ongoing titration of opioid analgesia. Anticipated prognosis 24 hrs or less.
[2022-08-03] MEDS: MORPHINE 2 MG/ML CARPUJECT IVP SCH ×4 (15:24→22:10)
[2022-08-03 18:24] VITALS: BP 149/77
--- NOTE | 2022-08-04 10:45 | DISCHARGE SUMMARY ---
Discharge Summary Admit Date: 08/03/22 Discharge Date: 08/04/22 Discharge Disposition: 20 - DIAGNOSES Admission Diagnoses: 1. Catastrophic L MCA CVA, acute 2. NSTEMI 3. Acute hypoxic respiratory failure Discharge Diagnoses with Status of Each Condition: dx: Acute catastrophic LMCA CVA NSTEMI Acute hypoxic respiratory failure - HPI History of Present Illness: 82 yo female w/CAD, HTN, HL, COPD, chronic back pain, depression, dementia (suspected relatively mild as she was living home alone), hypothyroidism, GERD and fibromyalgia who was found down unresponsive in her apartment yesterday am. She was last known to be normal on the evening of 07/30 when she spoke to a friend. As she had not been heard from over the weekend, a friend checked on her yesterday and found her on the floor, minimally responsive, having had urinary incontinence. EMS was called and pt was transferred to the ED (she lives across the street from the hospital). In the ED, work-up was performed. She was found to have mild leukocytosis at 14, mild hyperbilirubinemia, evidence of an NSTEMI and a large L MCA stroke w/5mm of midline shift and uncal effacement. Viral testing was negative. She was given IVFs and granddaughter was contacted. It was felt she had a catastrophic stroke and they recommended hospice care. Currently, pt appears very uncomfortable. She is tachycardic, tachypneic and is fidgeting. She is nonverbal, noncommunicative. Granddaughter is at bedside. She expresses that her grandmother would want comfort care. She expresses concern about the IVFs potentially prolonging her dying process. She reports pt's son lives in [place] and will be handling estate issues but likely won't be able to fly here d/t the holiday week and difficulty getting flights. - HOSPITAL COURSE Hospital Course: Pt was admitted to Hospice GIP level of care for mgmt of pain/respiratory distress. She was given scheduled IVP morphine with good effect. She peacefully with her granddaughter at bedside at 0020 on 08/04/22. - ALLERGIES Allergies/Adverse Reactions: Allergies Allergy/AdvReac Type Severity Reaction Status Date / Time lisinopril Allergy Anaphylaxis Verified 11/16/18 15:55 rivastigmine [From Exelon] Allergy Rash Verified 11/16/18 15:55 rivastigmine tartrate * Allergy Rash Verified 11/16/18 15:55 [From Exelon] - MEDICATIONS Home Medications: Ambulatory Orders Medication Instructions Recorded Confirmed Flaxseed Oil 1 tab PO TID 06/03/17 11/17/18 Hydrocodone/Acetaminophen 1 tab PO Q6H PRN 06/03/17 11/17/18 [Hydrocodone-Acetamin 7.5-325] Loperamide HCl [Loperamide] 1 tab PO DAILY 06/03/17 11/17/18 Montelukast [Singulair] 10 mg PO DAILY 06/03/17 11/17/18 [place]-3/Dha/Epa/Fish Oil [Fish Oil 1 tab PO TID 06/03/17 11/17/18 1,000 mg Softgel] Simvastatin [Zocor] 20 mg PO DAILY 06/03/17 11/17/18 Aspirin [Adult Low Dose Aspirin EC] 81 mg PO DAILY 03/01/18 11/17/18 Cholecalciferol (Vitamin D3) 2,000 unit PO DAILY 03/01/18 11/17/18 [Vitamin D3] Cranberry 15,000 mg PO DAILY 03/01/18 11/17/18 Multivitamin [Multivitamins] 1 cap PO DAILY 03/01/18 11/17/18 Vitamin E (Dl,Tocopheryl Acet) 1 cap PO DAILY 03/01/18 11/17/18 [Vitamin E] Levothyroxine Sodium 100 mcg PO DAILY 10/16/18 11/17/18 Spironolactone 25 mg PO DAILY 10/16/18 11/17/18 Acetaminophen [Tylenol] 650 mg PO Q4HR PRN tablet 10/18/18 11/17/18 Famotidine [Pepcid] 20 mg PO DAILY tablet 10/18/18 11/17/18 Lactobacillus Rhamnosus GG 1 cap PO DAILY #30 capsule 10/18/18 11/17/18 [Culturelle] traZODone [Desyrel] 50 mg PO QPM PRN tablet 10/18/18 11/17/18 Amox/Clav 875/125 [Augmentin 1 each PO Q12H 5 Days #10 tablet 10/28/18 11/17/18 875/125 Tab] Gabapentin [Neurontin] 300 mg PO QPM #30 capsule 10/28/18 11/17/18 Metoprolol Succinate [Toprol Xl] 50 mg PO DAILY #30 tablet 10/28/18 11/17/18 B-Complex with Vitamin C [Vitamin 1 each PO DAILY 11/17/18 11/17/18 B-Complex with Vit C] Ferrous Sulfate 325 mg PO DAILY 11/17/18 11/17/18 metOLazone [Metolazone] 2.5 mg PO DAILY 11/17/18 11/17/18
== END 2022-08-04 00:20 | disposition expired | DRG 64 ==
LOC: MS2 11:30
PROVIDERS: ADMIT Family Medicine; ATTEND Family Medicine
DX: I63.9 Cerebral infarction, unspecified (principal); I21.4 Non-ST elevation (NSTEMI) myocardial infarction; J96.01 Acute respiratory failure with hypoxia; I10 Essential (primary) hypertension; J44.9 Chronic obstructive pulmonary disease, unspecified; G89.29 Other chronic pain; M54.9 Dorsalgia, unspecified; F32.A Depression, unspecified; F03.90 Unspecified dementia, unspecified severity, without behavioral disturbance, psychotic disturbance, mood disturbance, and anxiety; E03.9 Hypothyroidism, unspecified; K21.9 Gastro-esophageal reflux disease without esophagitis; M79.7 Fibromyalgia; D72.829 Elevated white blood cell count, unspecified; E80.6 Other disorders of bilirubin metabolism; G62.9 Polyneuropathy, unspecified; E78.00 Pure hypercholesterolemia, unspecified; G47.30 Sleep apnea, unspecified; H54.7 Unspecified visual loss; H91.90 Unspecified hearing loss, unspecified ear; Z51.5 Encounter for palliative care; Z79.82 Long term (current) use of aspirin; Z79.890 Hormone replacement therapy; Z79.899 Other long term (current) drug therapy; Z80.9 Family history of malignant neoplasm, unspecified; Z81.8 Family history of other mental and behavioral disorders; Z90.710 Acquired absence of both cervix and uterus